=== PATIENT | female | born 1985 | race Caucasian/White ===

== ENCOUNTER 2016-04-07 08:22 | Inpatient (IN) | payer MEDICAID ==
[2016-03-31] MEDS: PANTOPRAZOLE SODIUM 40 MG VIAL IV SCH (23:00)
[2016-04-07 09:32] LABS: HEMATOCRIT 48.1 % (36.0-47.0); HEMOGLOBIN 15.6 g/dL (12.0-15.5); HGB HCT DIFFERENCE -1.3; MEAN CORPUSCULAR HEMOGLOBIN 27.6 pg (27.0-33.4); MEAN CORPUSCULAR HGB CONC 32.3 g/dL (32.0-36.0); MEAN CORPUSCULAR VOLUME 85 fl (80-97); RED BLOOD COUNT 5.64 10^6/uL (3.72-5.28); RED CELL DISTRIBUTION WIDTH 14.9 % (11.5-14.0)
[2016-04-07 09:50] LABS: ALANINE AMINOTRANSFERASE 45 U/L (9-52); ALBUMIN 5.4 g/dL (3.5-5.0); ALKALINE PHOSPHATASE 98 U/L (38-126); ASPARTATE AMINO TRANSFERASE 27 U/L (14-36); BLOOD UREA NITROGEN 22 mg/dL (7-20); CALCIUM 10.8 mg/dL (8.4-10.2); TOTAL PROTEIN 9.2 g/dL (6.3-8.2)
[2016-04-07 09:56] LABS: BAND NEUTROPHILS % (MANUAL) 1 % (3-5); BASOPHILS % (MANUAL) 0 % (0-2); EOSINOPHILS % (MANUAL) 0 % (0-6); LYMPHOCYTES % (MANUAL) 8 % (13-45); TOTAL CELLS COUNTED 100
[2016-04-07 09:57] LABS: ANISOCYTOSIS SLIGHT; CHLORIDE 100 mmol/L (98-107); POTASSIUM 5.6 mmol/L (3.6-5.0); SODIUM 137.5 mmol/L (137-145); TOXIC GRANULATION SLIGHT; TOXIC VACUOLATION PRESENT
[2016-04-07 09:58] LABS: ANION GAP 28 (5-19)
[2016-04-07 10:00] LABS: CARBON DIOXIDE 10 mmol/L (22-30); GLUCOSE 483 mg/dL (75-110)
[2016-04-07 10:04] LABS: APPEARANCE,URINE CLEAR; BILIRUBIN,URINE NEGATIVE (NEGATIVE); GLUCOSE, URINE >=500 mg/dL (NEGATIVE); KETONES,URINE 80 mg/dL (NEGATIVE); LEUKOCYTE ESTERASE,URINE NEGATIVE (NEGATIVE); NITRITE,URINE NEGATIVE (NEGATIVE); PROTEIN,URINE 30 mg/dL (NEGATIVE); URINE SPECIFIC GRAVITY 1.028; UROBILINOGEN,URINE NEGATIVE mg/dL (<2.0)
[2016-04-07] MEDS ORDERED: INSULIN REG, HUMAN 100 UNIT/ML 3 ML VIAL (PYX) SUBCUT ONE (10:07)
--- NOTE | 2016-04-07 10:13 | ER Document Report ---
ED General - General Chief Complaint: Vomiting Stated Complaint: VOMITING Mode of Arrival: Ambulatory Information source: Patient Notes: 30 yr old female hx of type 1 diabetes on lantus and novolog presents with complaints of nausea vomiting. pt was seen by pcp given a shot of medication 2 days ago starting with letter D for her sinusitis. pt notes since then she has not felt well last dka was 2014 TRAVEL OUTSIDE OF THE [place] IN LAST 30 DAYS: No - HPI Onset: Yesterday Onset/Duration: Sudden Quality of pain: Achy Severity: Severe Pain Level: 3 Associated symptoms: Body/muscle aches, Nausea, Vomiting, Weakness Exacerbated by: Denies Relieved by: Denies Similar symptoms previously: Yes Recently seen / treated by doctor: Yes - Related Data Allergies/Adverse Reactions: Penicillins Allergy (Verified 04/07/16 08:26) Past Medical History - Social History Smoking Status: Current Every Day Smoker Cigarette use (# per day): Yes Chew tobacco use (# tins/day): No Smoking Education Provided: No Frequency of alcohol use: None Drug Abuse: None Family History: Reviewed & Not Pertinent Patient has suicidal ideation: No Patient has homicidal ideation: No - Past Medical History Cardiac Medical History: Reports: Hx Hypercholesterolemia Pulmonary Medical History: Denies: Hx Tuberculosis Endocrine Medical History: Reports: Hx Diabetes Mellitus Type 1 Renal/ Medical History: Denies: Hx Peritoneal Dialysis Psychiatric Medical History: Reports: Hx Depression Past Surgical History: Reports: Hx Tubal Ligation - 2005. Denies: Hx Pacemaker - Immunizations Hx Diphtheria, Pertussis, Tetanus Vaccination: No Review of Systems - Review of Systems Notes: PHYSICAL EXAMINATION: GENERAL: Ill-appearing female moderate acute distress HEAD: Atraumatic, normocephalic. EYES: Pupils equal round and reactive to light, extraocular movements intact, conjunctiva are normal. ENT: Nares patent, oropharynx clear without exudates. Moist mucous membranes. NECK: Normal range of motion, supple without lymphadenopathy LUNGS: Breath sounds clear to auscultation bilaterally and equal. No wheezes rales or rhonchi. HEART: Tachycardic ABDOMEN: Soft, nontender, nondistended abdomen. No guarding, no rebound. No masses appreciated. Patient is actively vomiting Female : deferred Musculoskeletal: Normal range of motion, no pitting or edema. No cyanosis. NEUROLOGICAL: Cranial nerves grossly intact. Normal speech, normal gait. Normal sensory, motor exams PSYCH: Normal mood, normal affect. SKIN: Warm, Dry, normal turgor, no rashes or lesions noted. Physical Exam - Vital signs Vitals: Temp Pulse Resp BP Pulse Ox 97.3 F 106 H 18 144/84 H 99 04/07/16 08:30 04/07/16 08:30 04/07/16 08:30 04/07/16 08:30 04/07/16 08:30 Course - Re-evaluation Re-evalutation: 04/07/16 10:16 Patient noted to be in DKA at this time, patient does have elevated white count hyperglycemia with associated ketones in the urine and low bicarbonate she'll be started on insulin drip bolus fluids have been ordered pain control and nausea control patient will be admitted to the hospital service - Vital Signs Vital signs: Temp Pulse Resp BP Pulse Ox 97.3 F 106 H 18 144/84 H 99 04/07/16 08:30 04/07/16 08:30 04/07/16 08:30 04/07/16 08:30 04/07/16 08:30 - Laboratory Result Diagrams: 04/07/16 09:18 04/07/16 09:18 Laboratory results interpreted by me: 04/07/16 04/07/16 04/07/16 09:18 09:18 09:24 WBC 22.0 H RBC 5.64 H Hgb 15.6 H Hct 48.1 H RDW 14.9 H Seg Neuts % (Manual) 82 H Band Neutrophils % 1 L Lymphocytes % (Manual) 8 L Abs Neuts (Manual) 18.3 H Abs Monocytes (Manual) 1.5 H Potassium 5.6 H Carbon Dioxide 10 L* Anion Gap 28 H BUN 22 H Glucose 483 H* POC Glucose 434 H* Calcium 10.8 H Total Protein 9.2 H Albumin 5.4 H Urine Protein Urine Glucose (UA) Urine Ketones Urine Blood 04/07/16 09:42 WBC RBC Hgb Hct RDW Seg Neuts % (Manual) Band Neutrophils % Lymphocytes % (Manual) Abs Neuts (Manual) Abs Monocytes (Manual) Potassium Carbon Dioxide Anion Gap BUN Glucose POC Glucose Calcium Total Protein Albumin Urine Protein 30 H Urine Glucose (UA) >=500 H Urine Ketones 80 H Urine Blood SMALL H Critical Care Note - Critical Care Note Total time excluding time spent on procedures (mins): 32 Comments: 32 minutes of critical care time spent in direct contact evaluating and reevaluating the patient, treating symptoms, reviewing labs and studies and speaking with family and consultants excluding any procedures Discharge - Discharge Clinical Impression: DKA (diabetic ketoacidoses) Qualifiers: Diabetes mellitus type: type 1 Diabetes mellitus complication detail: without coma Qualified Code(s): E10.10 - Type 1 diabetes mellitus with ketoacidosis without coma Nausea & vomiting Qualifiers: Vomiting type: unspecified Vomiting Intractability: non-intractable Qualified Code(s): R11.2 - Nausea with vomiting, unspecified Leukocytosis Qualifiers: Leukocytosis type: unspecified Qualified Code(s): D72.829 - Elevated white blood cell count, unspecified Condition: Serious Disposition: ADMITTED INPATIENT Admitting Provider: Hospitalist Unit Admitted: [facility]
[2016-04-07] MEDS ORDERED: ONDANSETRON HCL INJ/PF 4 MG/2 ML SDV IV ONE (10:17)
[2016-04-07] MEDS ORDERED: HYDROMORPHONE HCL INJ/PF 2 MG/ML AMPULE IV ONE (10:17)
[2016-04-07] MEDS: NORMAL SALINE 1000 ML 1,000 ML IV PRN ×4 (10:26→12:22)
[2016-04-07 10:31] LABS: VENOUS BLOOD HCO3 10.5 mmol/L (20-32); VENOUS BLOOD PCO2 33.6 mmHg (35-63)
[2016-04-07 10:34] LABS: VENOUS BLOOD PH 7.11 (7.30-7.42)
[2016-04-07] MEDS ORDERED: DEXTROSE 40% GEL 15 GM TUBE PO PRN ×2 (10:55)
[2016-04-07] MEDS ORDERED: GLUCAGON,HUMAN RECOMB 1 MG INJ IM PRN (10:55)
[2016-04-07] MEDS ORDERED: DEXTROSE 50%-WATER 25 GM/50 ML DISP.SYRIN IV PRN ×2 (10:55)
[2016-04-07] MEDS ORDERED: NORMAL SALINE 100 ML with INSULIN REGULAR, HUMAN 100 UNIT IV PRN ×2 (10:55)
[2016-04-07] MEDS ORDERED: PROMETHAZINE HCL INJ 50 MG/1 ML VIAL IM PRN (10:56)
[2016-04-07] MEDS ORDERED: ONDANSETRON HCL INJ/PF 4 MG/2 ML SDV IV PRN (10:56)
[2016-04-07] MEDS ORDERED: NORMAL SALINE 1000 ML 1,000 ML IV PRN (10:58)
[2016-04-07] MEDS ORDERED: ACETAMINOPHEN 325 MG TABLET PO PRN (10:58)
[2016-04-07] MEDS ORDERED: INSULIN REG, HUMAN 100 UNIT/ML 3 ML VIAL (PYX) ONE (11:11)
[2016-04-07] MEDS ORDERED: ENOXAPARIN SODIUM INJ 40 MG/0.4 ML DISP.SYRIN SUBCUT ONE (12:30)
[2016-04-07] MEDS ORDERED: NICOTINE 21 MG/24 HR PATCH.TD24 TD ONE (12:30)
[2016-04-07 14:27] LABS: CREATINE KINASE MB 0.71 ng/mL (<4.55)
[2016-04-07 14:34] LABS: TROPONIN I < 0.012 ng/mL
[2016-04-07 14:35] LABS: ANION GAP 22 (5-19); BLOOD UREA NITROGEN 17 mg/dL (7-20); CALCIUM 8.7 mg/dL (8.4-10.2); CHLORIDE 114 mmol/L (98-107); CREATININE RESULT 0.55 mg/dL (0.52-1.25); GLUCOSE 257 mg/dL (75-110); POTASSIUM 5.1 mmol/L (3.6-5.0)
[2016-04-07 14:37] LABS: CARBON DIOXIDE 8 mmol/L (22-30)
[2016-04-07] MEDS: POTASSI CL 20 MEQ/D5-1/2NS 1L 1,000 ML IV PRN ×2 (15:38→22:37)
[2016-04-07] MEDS ORDERED: SODIUM BICARBONATE 8.4% INJ 50 MEQ/50 ML DISP.SYRIN IV ONE (16:00)
[2016-04-07] MEDS: OSELTAMIVIR PHOSPHATE 75 MG CAPSULE PO SCH (17:24)
[2016-04-07] MEDS: LACTOBACILLUS ACIDOPHILUS 250 MG TAB PO SCH (17:24)
[2016-04-07 18:03] LABS: ANION GAP 10 (5-19); BLOOD UREA NITROGEN 13 mg/dL (7-20); CALCIUM 8.5 mg/dL (8.4-10.2); CHLORIDE 113 mmol/L (98-107); CREATININE RESULT 0.52 mg/dL (0.52-1.25); GLUCOSE 165 mg/dL (75-110); POTASSIUM 4.4 mmol/L (3.6-5.0); SODIUM 141.8 mmol/L (137-145)
[2016-04-07 18:18] LABS: CARBON DIOXIDE 19 mmol/L (22-30)
[2016-04-07 19:43] LABS: CREATINE KINASE MB 0.86 ng/mL (<4.55)
[2016-04-07 19:46] LABS: TROPONIN I < 0.012 ng/mL
--- NOTE | 2016-04-07 20:26 | PDOC H&P ---
History of Present Illness Admission Date/PCP: 04/07/16 10:37 NASRIN KYLE, LIMNOLOGIST-C History of Present Illness: ROSITA SCOTT is a 30 year old female with type I diabetes mellitus who reports the emergency department with elevated blood sugar and nausea vomiting diarrhea. Patient has been caring for her 2 children both of whom have been diagnosed with influenza A and B who began developing flulike symptoms. She went to see her primary care yesterday and was given a shot and some antibiotics. Patient then reports that she began having increased diarrhea and nausea and vomiting. She does have some sinus congestion still. She denies any fevers or chills, but has been taking antipyretics at that time. Patient had a blood sugar of 440 which wasn't characteristic for her. She presents emergency department overtly in DKA. Just for to hospital service for admission. Past Medical History Past Medical History: Diabetes mellitus type I Pulmonary Medical History: Denies: Tuberculosis Endocrine Medical History: Reports: Diabetes Mellitus Type 1 Psychiatric Medical History: Reports: Depression Past Surgical History Past Surgical History: Reports: Tubal Ligation - 2005 Denies: Pacemaker Social History Smoking Status: Current Every Day Smoker Cigarettes Packs Per Day: 1 Frequency of Alcohol Use: Rare Hx Recreational Drug Use: Yes Drugs: Marijuana Hx Prescription Drug Abuse: No - Advance Directive Resuscitation Status: Full Code Surrogate healthcare decision maker:: Cheli Vee, mother Family History Family History: CAD, DM, Other - Brain aneurysms Parental Family History Reviewed: Yes Children Family History Reviewed: Yes Sibling(s) Family History Reviewed.: Yes Medication/Allergy Home Medications: Insulin Aspart [Novolog Insulin 100 Unit/1 ml 10 ml] 0 unit SUBCUT .SLD SCALE Insulin Glargine,Hum.rec.anlog [Lantus Solostar] 60 unit SQ DAILY 04/07/16 Allergies/Adverse Reactions: Penicillins Allergy (Verified 04/07/16 08:26) Review of Systems Constitutional: PRESENT: chills, fatigue, weakness. ABSENT: fever(s), headache( s), weight gain, weight loss Eyes: ABSENT: visual disturbances Ears: ABSENT: hearing changes Cardiovascular: ABSENT: chest pain, dyspnea on exertion, edema, orthropnea, palpitations Respiratory: ABSENT: cough, hemoptysis Gastrointestinal: PRESENT: abdominal pain, diarrhea, nausea, vomiting. ABSENT: constipation, hematemesis, hematochezia, melena Genitourinary: ABSENT: dysuria, hematuria Musculoskeletal: ABSENT: joint swelling Integumentary: ABSENT: rash, wounds Neurological: ABSENT: abnormal gait, abnormal speech, confusion, dizziness, focal weakness, syncope Psychiatric: ABSENT: anxiety, depression, homidical ideation, suicidal ideation Endocrine: PRESENT: polyuria. ABSENT: cold intolerance, heat intolerance, polydipsia Hematologic/Lymphatic: ABSENT: easy bleeding, easy bruising Physical Exam Vital Signs: Temp Pulse Resp BP Pulse Ox 97.3 F 106 H 18 144/84 H 99 04/07/16 08:30 04/07/16 08:30 04/07/16 08:30 04/07/16 08:30 04/07/16 08:30 General appearance: PRESENT: severe distress - Vomiting, acutely ill-appearing, well-developed, well-nourished Head exam: PRESENT: atraumatic, normocephalic Eye exam: PRESENT: conjunctiva pink, EOMI, PERRLA. ABSENT: scleral icterus Ear exam: PRESENT: normal external ear exam. ABSENT: TM's normal bilaterally - Left ear injected TM, right ear cerumen impacted Mouth exam: PRESENT: dry mucosa, tongue midline Throat exam: PRESENT: post pharyngeal erythema Neck exam: PRESENT: full ROM, lymphadenopathy. ABSENT: carotid bruit, JVD, thyromegaly, tracheal deviation Respiratory exam: PRESENT: clear to auscultation roya, tachypnea, unlabored. ABSENT: decreased breath sounds, rales, retraction, rhonchi, wheezes Cardiovascular exam: PRESENT: RRR, +S1, +S2, tachycardia. ABSENT: diastolic murmur, gallop, rubs, systolic murmur Pulses: PRESENT: normal dorsalis pedis pul Vascular exam: PRESENT: normal capillary refill GI/Abdominal exam: PRESENT: normal bowel sounds, soft. ABSENT: distended, firm , guarding, mass, Senior's sign, organolmegaly, rebound, rigid, tenderness Rectal exam: PRESENT: deferred Extremities exam: PRESENT: full ROM. ABSENT: calf tenderness, clubbing, pedal edema Musculoskeletal exam: PRESENT: ambulatory, full ROM Neurological exam: PRESENT: alert, awake, oriented to person, oriented to place , oriented to time, oriented to situation, CN II-XII grossly intact. ABSENT: motor sensory deficit Psychiatric exam: PRESENT: appropriate affect, normal mood. ABSENT: homicidal ideation, suicidal ideation Skin exam: PRESENT: dry, intact, warm. ABSENT: cyanosis, rash Results Laboratory Results: 04/07/16 04/07/16 04/07/16 09:18 09:18 10:10 WBC 22.0 H Hgb 15.6 H Hct 48.1 H Band Neutrophils % 1 L VBG pH 7.11 L* Sodium 137.5 Potassium 5.6 H Chloride 100 Carbon Dioxide 10 L* Anion Gap 28 H BUN 22 H Creatinine 0.80 Est GFR (Non-Af Amer) > 60 Glucose 483 H* Calcium 10.8 H Influenza A (Rapid) Influenza B (Rapid) 04/07/16 10:20 WBC Hgb Hct Band Neutrophils % VBG pH Sodium Potassium Chloride Carbon Dioxide Anion Gap BUN Creatinine Est GFR (Non-Af Amer) Glucose Calcium Influenza A (Rapid) NEGATIVE Influenza B (Rapid) NEGATIVE Assessment & Plan - Diagnosis (1) DKA, type 1 Qualifiers: Diabetes mellitus complication detail: without coma Qualified Code(s ): E10.10 - Type 1 diabetes mellitus with ketoacidosis without coma Is this a current diagnosis for this admission?: YesPlan: Initiated patient on insulin drip and give total of 5 L of normal saline bolus. Then run patient 200 mL an hour. Every 4 BMPs and every hour Accu-Cheks. (2) Sepsis Qualifiers: Sepsis type: sepsis due to unspecified organism Qualified Code(s): A41.9 - Sepsis, unspecified organism Is this a current diagnosis for this admission?: YesPlan: Patient meets sepsis criteria with her leukocytosis, tachycardia, and tachypnea. Feel that this is likely secondary to undiagnosed influenza. Will send influenza for PCR. Begin patient on Tamiflu. (3) Influenza Is this a current diagnosis for this admission?: YesPlan: Patient meets sepsis criteria with her leukocytosis, tachycardia, and tachypnea. Feel that this is likely secondary to undiagnosed influenza. Will send influenza for PCR. Begin patient on Tamiflu. (4) Tobacco abuse Is this a current diagnosis for this admission?: YesPlan: Nicotine patch. Patient has been counseled on cessation for greater than 2 minutes. - Time Time Spent: 50 to 70 Minutes Medications reviewed and adjusted accordingly: Yes Anticipated discharge: Home Within: within 48 hours - Inpatient Certification Based on my medical assessment, after consideration of the patient's comorbidities, presenting symptoms, or acuity I expect that the services needed warrant INPATIENT care.: Yes I certify that my determination is in accordance with my understanding of Medicare's requirements for reasonable and necessary INPATIENT services [42 CFR 412.3e].: Yes Medical Necessity: Need For IV Fluids Post Hospital Care: D/C Natural Sciences Manager Documentation
[2016-04-07 21:55] LABS: ANION GAP 10 (5-19); BLOOD UREA NITROGEN 11 mg/dL (7-20); CALCIUM 8.8 mg/dL (8.4-10.2); CARBON DIOXIDE 18 mmol/L (22-30); CHLORIDE 113 mmol/L (98-107); CREATININE RESULT 0.48 mg/dL (0.52-1.25); GLUCOSE 124 mg/dL (75-110); POTASSIUM 4.2 mmol/L (3.6-5.0); SODIUM 141.3 mmol/L (137-145)
[2016-04-08 01:15] LABS: ANION GAP 10 (5-19); BLOOD UREA NITROGEN 11 mg/dL (7-20); CALCIUM 8.3 mg/dL (8.4-10.2); CARBON DIOXIDE 15 mmol/L (22-30); CHLORIDE 113 mmol/L (98-107); CREATINE KINASE 91 U/L (30-135); CREATININE RESULT 0.49 mg/dL (0.52-1.25); GLUCOSE 166 mg/dL (75-110); POTASSIUM 4.2 mmol/L (3.6-5.0); SODIUM 138.4 mmol/L (137-145)
[2016-04-08 01:25] LABS: CREATINE KINASE MB 0.63 ng/mL (<4.55)
[2016-04-08 01:32] LABS: TROPONIN I < 0.012 ng/mL
[2016-04-08] MEDS: POTASSI CL 20 MEQ/D5-1/2NS 1L 1,000 ML IV PRN ×2 (03:47→07:18)
[2016-04-08 05:31] LABS: ABSOLUTE LYMPHOCYTES (AUTO) 2.2 10^3/uL (0.5-4.7); ABSOLUTE MONOCYTES (AUTO) 0.7 10^3/uL (0.1-1.4); ABSOLUTE NEUT (AUTO) 7.9 10^3/uL (1.7-8.2); BASOPHILS % (AUTO) 0.3 % (0-2); EOSINOPHILS % (AUTO) 0.4 % (0-6); HEMATOCRIT 34.2 % (36.0-47.0); HGB HCT DIFFERENCE 1.2; LYMPHOCYTES % (AUTO) 20.1 % (13-45); MEAN CORPUSCULAR HEMOGLOBIN 28.1 pg (27.0-33.4); MEAN CORPUSCULAR HGB CONC 34.3 g/dL (32.0-36.0); MEAN CORPUSCULAR VOLUME 82 fl (80-97); MONOCYTES % (AUTO) 6.4 % (3-13); RED BLOOD COUNT 4.18 10^6/uL (3.72-5.28); RED CELL DISTRIBUTION WIDTH 14.8 % (11.5-14.0); SEGMENTED NEUTROPHILS % (AUTO) 72.8 % (42-78); WHITE BLOOD COUNT 10.8 10^3/uL (4.0-10.5)
[2016-04-08 05:36] LABS: HEMOGLOBIN 11.8 g/dL (12.0-15.5)
[2016-04-08 05:49] LABS: ANION GAP 8 (5-19); BLOOD UREA NITROGEN 10 mg/dL (7-20); CALCIUM 8.5 mg/dL (8.4-10.2); CARBON DIOXIDE 17 mmol/L (22-30); CHLORIDE 113 mmol/L (98-107); CREATININE RESULT 0.48 mg/dL (0.52-1.25); GLUCOSE 141 mg/dL (75-110); MAGNESIUM 1.7 mg/dL (1.6-2.3); SODIUM 138.1 mmol/L (137-145)
[2016-04-08] MEDS ORDERED: NORMAL SALINE 1000 ML 1,000 ML IV ONE (07:47)
[2016-04-08] MEDS ORDERED: INSULIN LISPRO 100 UNIT/ML 3 ML VIAL SUBCUT PRN (07:51)
[2016-04-08] MEDS ORDERED: MAGNESIUM SULFATE/D5W 100 ML IV SCH (08:00)
[2016-04-08] MEDS: ENOXAPARIN SODIUM INJ 40 MG/0.4 ML DISP.SYRIN SUBCUT SCH (08:45)
[2016-04-08] MEDS ORDERED: INSULIN GLARGINE,HUM.REC.ANLOG 1,000 UNIT/10 ML UNIT SUBCUT ONE (09:30)
[2016-04-08] MEDS: LACTOBACILLUS ACIDOPHILUS 250 MG TAB PO SCH ×2 (10:02→17:59)
[2016-04-08] MEDS: OSELTAMIVIR PHOSPHATE 75 MG CAPSULE PO SCH ×2 (10:02→18:00)
[2016-04-08] MEDS: NICOTINE 21 MG/24 HR PATCH.TD24 TD SCH (10:03)
[2016-04-08] MEDS: PANTOPRAZOLE SODIUM 40 MG VIAL IV SCH ×2 (10:03→22:30)
[2016-04-08 11:14] LABS: ANION GAP 6 (5-19); BLOOD UREA NITROGEN 7 mg/dL (7-20); CALCIUM 8.6 mg/dL (8.4-10.2); CARBON DIOXIDE 21 mmol/L (22-30); CHLORIDE 114 mmol/L (98-107); CREATININE RESULT 0.47 mg/dL (0.52-1.25); GLUCOSE 95 mg/dL (75-110); POTASSIUM 3.8 mmol/L (3.6-5.0)
[2016-04-08] MEDS: NORMAL SALINE 1000 ML 1,000 ML IV PRN ×2 (12:24→22:30)
[2016-04-08 14:13] LABS: ANION GAP 11 (5-19); BLOOD UREA NITROGEN 6 mg/dL (7-20); CARBON DIOXIDE 17 mmol/L (22-30); CHLORIDE 113 mmol/L (98-107); GLUCOSE 99 mg/dL (75-110); SODIUM 140.6 mmol/L (137-145)
[2016-04-08 17:23] LABS: ANION GAP 10 (5-19); BLOOD UREA NITROGEN 6 mg/dL (7-20); CALCIUM 8.8 mg/dL (8.4-10.2); CARBON DIOXIDE 20 mmol/L (22-30); CHLORIDE 112 mmol/L (98-107); CREATININE RESULT 0.56 mg/dL (0.52-1.25); GLUCOSE 143 mg/dL (75-110); POTASSIUM 4.3 mmol/L (3.6-5.0); SODIUM 141.8 mmol/L (137-145)
[2016-04-08] MEDS ORDERED: INFLUENZA ADLT QUAD (36MOS+) 2016-17 VAC 0.5 ML SYR IM PRN (18:13)
[2016-04-08 22:03] LABS: ANION GAP 8 (5-19); BLOOD UREA NITROGEN 7 mg/dL (7-20); CALCIUM 9.3 mg/dL (8.4-10.2); CARBON DIOXIDE 22 mmol/L (22-30); CHLORIDE 110 mmol/L (98-107); CREATININE RESULT 0.59 mg/dL (0.52-1.25); GLUCOSE 230 mg/dL (75-110); POTASSIUM 4.7 mmol/L (3.6-5.0); SODIUM 139.9 mmol/L (137-145)
[2016-04-08] MEDS ORDERED: NORMAL SALINE 1000 ML 1,000 ML IV PRN (22:53)
--- NOTE | 2016-04-08 22:55 | PDOC PROGRESS REPORT ---
Subjective Progress Note for:: 04/08/16 Subjective:: Patient reports she's feeling significantly better today. She reports she is quite fatigued. Patient denies chest pain, shortness of breath, abdominal pain, nausea, vomiting , fevers, chills, diarrhea, constipation, headache. Physical Exam Vital Signs: Temp Pulse Resp BP Pulse Ox 97.8 F 78 17 122/74 99 04/08/16 19:08 04/08/16 19:08 04/08/16 19:08 04/08/16 19:08 04/08/16 19:08 Intake & Output 04/07/16 04/08/16 04/09/16 06:59 06:59 06:59 Weight 147 kg Exam: General: Awake alert and oriented x4, no acute respiratory distress HEENT: AT/NC, PERRL, EOMI, oropharynx is moist, pink, no scleral icterus, no conjunctival injection Neck: No JVD, trachea midline Chest: Clear to auscultation bilaterally, no wheezes rhonchi or rales CV: Regular rate and rhythm, normal S1 and S2, no murmur, rub, or gallop Abdomen: Soft, nontender to palpation, nondistended, active bowel sounds; no rebound, rigidity, or guarding Extremities: No cyanosis, clubbing or edema Neuro: Cranial nerves II through XII are grossly intact without focal deficits; awake alert and oriented x4 Psych: Normal mood and affect Results Laboratory Results: 04/08/16 05:05 04/08/16 21:40 04/08/16 04/08/16 04/08/16 00:48 05:05 05:05 WBC 10.8 H RBC 4.18 Hgb 11.8 L D Hct 34.2 L MCV 82 MCH 28.1 MCHC 34.3 RDW 14.8 H Plt Count 194 Seg Neutrophils % 72.8 Lymphocytes % 20.1 Monocytes % 6.4 Eosinophils % 0.4 Basophils % 0.3 Absolute Neutrophils 7.9 Absolute Lymphocytes 2.2 Absolute Monocytes 0.7 Absolute Eosinophils 0.0 Absolute Basophils 0.0 Sodium 138.4 138.1 Potassium 4.2 4.0 Chloride 113 H 113 H Carbon Dioxide 15 L 17 L Anion Gap 10 8 BUN 11 10 Creatinine 0.49 L 0.48 L Est GFR ( Amer) > 60 > 60 Est GFR (Non-Af Amer) > 60 > 60 Glucose 166 H 141 H Calcium 8.3 L 8.5 Magnesium 1.7 04/08/16 04/08/16 04/08/16 10:15 13:42 17:00 WBC RBC Hgb Hct MCV MCH MCHC RDW Plt Count Seg Neutrophils % Lymphocytes % Monocytes % Eosinophils % Basophils % Absolute Neutrophils Absolute Lymphocytes Absolute Monocytes Absolute Eosinophils Absolute Basophils Sodium 141.0 140.6 141.8 Potassium 3.8 4.0 4.3 Chloride 114 H 113 H 112 H Carbon Dioxide 21 L 17 L 20 L Anion Gap 6 11 10 BUN 7 6 L 6 L Creatinine 0.47 L 0.50 L 0.56 Est GFR ( Amer) > 60 > 60 > 60 Est GFR (Non-Af Amer) > 60 > 60 > 60 Glucose 95 99 143 H Calcium 8.6 9.0 8.8 Magnesium 04/08/16 04/08/16 20:55 21:40 WBC RBC Hgb Hct MCV MCH MCHC RDW Plt Count Seg Neutrophils % Lymphocytes % Monocytes % Eosinophils % Basophils % Absolute Neutrophils Absolute Lymphocytes Absolute Monocytes Absolute Eosinophils Absolute Basophils Sodium Cancelled 139.9 Potassium Cancelled 4.7 Chloride Cancelled 110 H Carbon Dioxide Cancelled 22 Anion Gap Cancelled 8 BUN Cancelled 7 Creatinine Cancelled 0.59 Est GFR ( Amer) Cancelled > 60 Est GFR (Non-Af Amer) Cancelled > 60 Glucose Cancelled 230 H Calcium Cancelled 9.3 Magnesium 04/07/16 04/07/16 04/07/16 13:10 13:10 18:58 Creatine Kinase 74 102 CK-MB (CK-2) 0.71 Troponin I < 0.012 04/07/16 04/08/16 04/08/16 18:58 00:48 00:48 Creatine Kinase 91 CK-MB (CK-2) 0.86 0.63 Troponin I < 0.012 < 0.012 Assessment & Plan - Diagnosis (1) DKA, type 1 Qualifiers: Diabetes mellitus complication detail: without coma Qualified Code(s ): E10.10 - Type 1 diabetes mellitus with ketoacidosis without coma Is this a current diagnosis for this admission?: YesPlan: Patient found to have a hemoglobin A1c of 11.2. Transition patient from IV insulin to her normal Lantus. Patient with persistent metabolic acidosis likely secondary to dehydration. Continue normal saline fluids. (2) Sepsis Qualifiers: Sepsis type: sepsis due to unspecified organism Qualified Code(s): A41.9 - Sepsis, unspecified organism Is this a current diagnosis for this admission?: YesPlan: Patient meets sepsis criteria with her leukocytosis, tachycardia, and tachypnea. Feel that this is likely secondary to undiagnosed influenza. Pending influenza for PCR. Patient on Tamiflu. (3) Influenza Is this a current diagnosis for this admission?: YesPlan: Patient on Tamiflu. (4) Tobacco abuse Is this a current diagnosis for this admission?: YesPlan: Nicotine patch. Patient has been counseled on cessation for greater than 2 minutes. - Time Time Spent with patient: 25-34 minutes Medications reviewed and adjusted accordingly: Yes Anticipated discharge: Home Within: within 24 hours
[2016-04-09 06:14] LABS: ABSOLUTE EOSINOPHILS # (AUTO) 0.1 10^3/uL (0.0-0.6); ABSOLUTE LYMPHOCYTES (AUTO) 2.5 10^3/uL (0.5-4.7); ABSOLUTE MONOCYTES (AUTO) 0.5 10^3/uL (0.1-1.4); BASOPHILS % (AUTO) 0.3 % (0-2); EOSINOPHILS % (AUTO) 1.3 % (0-6); HEMATOCRIT 32.4 % (36.0-47.0); HEMOGLOBIN 11.2 g/dL (12.0-15.5); HGB HCT DIFFERENCE 1.2; MEAN CORPUSCULAR HEMOGLOBIN 28.1 pg (27.0-33.4); MEAN CORPUSCULAR HGB CONC 34.6 g/dL (32.0-36.0); MEAN CORPUSCULAR VOLUME 81 fl (80-97); MONOCYTES % (AUTO) 8.9 % (3-13); RED CELL DISTRIBUTION WIDTH 14.7 % (11.5-14.0); SEGMENTED NEUTROPHILS % (AUTO) 49.5 % (42-78); WHITE BLOOD COUNT 6.2 10^3/uL (4.0-10.5)
[2016-04-09 06:45] LABS: ANION GAP 10 (5-19); BLOOD UREA NITROGEN 7 mg/dL (7-20); CALCIUM 8.6 mg/dL (8.4-10.2); CARBON DIOXIDE 22 mmol/L (22-30); CHLORIDE 108 mmol/L (98-107); CREATININE RESULT 0.52 mg/dL (0.52-1.25); GLUCOSE 87 mg/dL (75-110); SODIUM 139.9 mmol/L (137-145)
[2016-04-09] MEDS: ENOXAPARIN SODIUM INJ 40 MG/0.4 ML DISP.SYRIN SUBCUT SCH (07:58)
[2016-04-09] MEDS ORDERED: ACETAMINOPHEN 325 MG TABLET PO PRN (08:22)
[2016-04-09] MEDS ORDERED: INSULIN GLARGINE,HUM.REC.ANLOG 1,000 UNIT/10 ML UNIT SUBCUT ONE (09:00)
[2016-04-09] MEDS: NICOTINE 21 MG/24 HR PATCH.TD24 TD SCH (09:02)
[2016-04-09] MEDS: OSELTAMIVIR PHOSPHATE 75 MG CAPSULE PO SCH (09:02)
[2016-04-09] MEDS: PANTOPRAZOLE SODIUM 40 MG VIAL IV SCH (09:02)
[2016-04-09] MEDS: LACTOBACILLUS ACIDOPHILUS 250 MG TAB PO SCH (09:04)
[2016-04-09 11:08] VITALS: BP 121/70
--- NOTE | 2016-04-09 11:10 | Physician Advisory Note ---
Physician Advisor ProgressNote .: [facility] to [facility], I have reviewed the medical record for this patient. Physician Advisor Statement: Possible documentation opportunities if attending agrees: 1. "obesity with BMI 51.3" As always, if concerned about any unstable VS or abnormal labs, please comment on them & note what doing about them, & please document each day the potential clinical problems you are concerned could occur if pt not kept in hospital for tx at this time. Thanks for your help with documentation accuracy/specificity improvement! Priscilla Graves MD [facility] Physician Advisor, Fellow of Hospital Medicine
--- NOTE | 2016-04-09 19:13 | PDOC DISCHARGE SUMMARY ---
General - Admit/Disc Date/PCP Admission Date/Primary Care Provider: 04/07/16 10:58 TYRONE SCHULTZ Discharge Date: 04/09/16 - Discharge Diagnosis (1) DKA, type 1 Is this a current diagnosis for this admission?: Yes (2) Sepsis Is this a current diagnosis for this admission?: Yes (3) Influenza Is this a current diagnosis for this admission?: Yes (4) Tobacco abuse Is this a current diagnosis for this admission?: Yes - Additional Information Resuscitation Status: Full Code Discharge Diet: Diabetic Discharge Activity: Activity As Tolerated, Balance Activity w/Rest, Slowly Increase Activity Home Medications: Insulin Aspart [Novolog Insulin (Aspart) 100 unit/mL] 0 unit SUBCUT .SLD SCALE 04/07/16 Insulin Glargine,Hum.rec.anlog [Lantus Solostar] 60 unit SQ DAILY 04/07/16 Oseltamivir Phosphate [Tamiflu 75 mg Capsule] 75 mg PO BID #6 capsule 04/09/16 Additional Information: Please note that patient's weight is incorrectly entered and patient is to be listed as 148 pounds 9 kg. Patient has a normal BMI. History of Present Illness History of Present Illness: ROSITA SCOTT is a 30 year old female with type I diabetes mellitus who reports the emergency department with elevated blood sugar and nausea vomiting diarrhea. Patient has been caring for her 2 children both of whom have been diagnosed with influenza A and B who began developing flulike symptoms. She went to see her primary care yesterday and was given a shot and some antibiotics. Patient then reports that she began having increased diarrhea and nausea and vomiting. She does have some sinus congestion still. She denies any fevers or chills, but has been taking antipyretics at that time. Patient had a blood sugar of 440 which wasn't characteristic for her. She presents emergency department overtly in DKA. Just for to hospital service for admission. Hospital Course Hospital Course: Patient was placed on insulin drip per protocol and quickly resolved. Patient was started on Tamiflu as she had been exposed to confirm fluid in both of her children. Patient had resolution of her symptomatology. Patient was retracted transition back to her home Lantus. Patient was also found to have a hemoglobin A1c of 11.2. The long-term side effects of diabetes mellitus were discussed with patient including heart disease, vision loss, chronic kidney disease and hemodialysis, and loss of limb. Patient was encouraged to follow- up with endocrinology as an outpatient. On day of discharge she was improved and stable for discharge. Physical Exam Vital Signs: Temp Pulse Resp BP Pulse Ox 97.7 F 74 16 121/70 100 04/09/16 11:01 04/09/16 11:01 04/09/16 11:01 04/09/16 11:01 04/09/16 11:01 Intake & Output 04/08/16 04/09/16 04/10/16 06:59 06:59 06:59 Intake Total 2850 351 Balance 2850 351 Weight 148.6 kg Exam: General: Awake alert and oriented x3, no acute respiratory distress HEENT: AT/NC, PERRL, EOMI, oropharynx is moist, pink, no scleral icterus, no conjunctival injection Neck: No JVD, trachea midline Chest: Clear to auscultation bilaterally, no wheezes rhonchi or rales CV: Regular rate and rhythm, normal S1 and S2, no murmur, rub, or gallop Abdomen: Soft, nontender to palpation, nondistended, active bowel sounds; no rebound, rigidity, or guarding Extremities: No cyanosis, clubbing or edema Neuro: Cranial nerves II through XII are grossly intact without focal deficits; awake alert and oriented x3 Psych: Normal mood and affect Results Laboratory Results: 04/09/16 05:04 04/09/16 05:04 04/08/16 04/08/16 04/09/16 20:55 21:40 05:04 WBC 6.2 RBC 4.00 Hgb 11.2 L Hct 32.4 L MCV 81 MCH 28.1 MCHC 34.6 RDW 14.7 H Plt Count 189 Seg Neutrophils % 49.5 Lymphocytes % 40.0 Monocytes % 8.9 Eosinophils % 1.3 Basophils % 0.3 Absolute Neutrophils 3.0 Absolute Lymphocytes 2.5 Absolute Monocytes 0.5 Absolute Eosinophils 0.1 Absolute Basophils 0.0 Sodium Cancelled 139.9 Potassium Cancelled 4.7 Chloride Cancelled 110 H Carbon Dioxide Cancelled 22 Anion Gap Cancelled 8 BUN Cancelled 7 Creatinine Cancelled 0.59 Est GFR ( Amer) Cancelled > 60 Est GFR (Non-Af Amer) Cancelled > 60 Glucose Cancelled 230 H Calcium Cancelled 9.3 04/09/16 05:04 WBC RBC Hgb Hct MCV MCH MCHC RDW Plt Count Seg Neutrophils % Lymphocytes % Monocytes % Eosinophils % Basophils % Absolute Neutrophils Absolute Lymphocytes Absolute Monocytes Absolute Eosinophils Absolute Basophils Sodium 139.9 Potassium 4.0 Chloride 108 H Carbon Dioxide 22 Anion Gap 10 BUN 7 Creatinine 0.52 Est GFR ( Amer) > 60 Est GFR (Non-Af Amer) > 60 Glucose 87 Calcium 8.6 04/07/16 04/07/16 04/07/16 13:10 13:10 18:58 Creatine Kinase 74 102 CK-MB (CK-2) 0.71 Troponin I < 0.012 04/07/16 04/08/16 04/08/16 18:58 00:48 00:48 Creatine Kinase 91 CK-MB (CK-2) 0.86 0.63 Troponin I < 0.012 < 0.012 Qualifiers PATEINT BEING DISCHARGED WITH ANY OF THE FOLLOWING DIAGNOSIS?: No Plan Time Spent: Less than 30 Minutes
== END 2016-04-09 12:15 | disposition home or self-care (01) | DRG 637 ==
LOC: ER 08:22 → EH 10:37 → UNDOADMIN 10:37 → EH 10:58 → 4N 04-08 16:32
PROVIDERS: ADMIT Family Medicine; ATTEND Family Medicine
DX: E10.10 Type 1 diabetes mellitus with ketoacidosis without coma (principal); A41.9 Sepsis, unspecified organism; J11.1 Influenza due to unidentified influenza virus with other respiratory manifestations; F17.210 Nicotine dependence, cigarettes, uncomplicated; E78.00 Pure hypercholesterolemia, unspecified; E86.0 Dehydration; Z82.49 Family history of ischemic heart disease and other diseases of the circulatory system; Z83.3 Family history of diabetes mellitus; Z98.51 Tubal ligation status; Z79.4 Long term (current) use of insulin; Z88.0 Allergy status to penicillin
CPT/HCPCS: 36415; 80048; 80053; 81001; 81025; 82550; 82553; 82803; 82962; 83036; 83735; 84484; 85025; 87040; 87086; 87798; 87804; 96361; 96374; 96375; 99291; J1170; J1650; J1815; J2405; J2550; J3475; J3480; J3490; J7030; S0164

== ENCOUNTER 2016-11-15 08:39 | Emergency (ER) | payer SELFPAY ==
[2016-11-15] MEDS: NORMAL SALINE 1000 ML 1,000 ML IV PRN ×2 (09:04→09:05)
[2016-11-15 09:20] LABS: VENOUS BLOOD HCO3 18.3 mmol/L (20-32); VENOUS BLOOD PCO2 36.6 mmHg (35-63); VENOUS BLOOD PH 7.32 (7.30-7.42)
[2016-11-15 09:22] LABS: ABSOLUTE EOSINOPHILS # (AUTO) 0.1 10^3/uL (0.0-0.6); ABSOLUTE MONOCYTES (AUTO) 0.6 10^3/uL (0.1-1.4); ABSOLUTE NEUT (AUTO) 6.9 10^3/uL (1.7-8.2); BASOPHILS % (AUTO) 0.5 % (0-2); EOSINOPHILS % (AUTO) 0.9 % (0-6); HEMATOCRIT 43.1 % (36.0-47.0); HEMOGLOBIN 14.8 g/dL (12.0-15.5); HGB HCT DIFFERENCE 1.3; LYMPHOCYTES % (AUTO) 20.8 % (13-45); MEAN CORPUSCULAR HEMOGLOBIN 28.9 pg (27.0-33.4); MEAN CORPUSCULAR HGB CONC 34.4 g/dL (32.0-36.0); MEAN CORPUSCULAR VOLUME 84 fl (80-97); MONOCYTES % (AUTO) 6.2 % (3-13); RED BLOOD COUNT 5.14 10^6/uL (3.72-5.28); RED CELL DISTRIBUTION WIDTH 14.5 % (11.5-14.0); SEGMENTED NEUTROPHILS % (AUTO) 71.6 % (42-78); WHITE BLOOD COUNT 9.6 10^3/uL (4.0-10.5)
[2016-11-15 09:37] LABS: ALANINE AMINOTRANSFERASE 36 U/L (9-52); ALKALINE PHOSPHATASE 65 U/L (38-126); ANION GAP 14 (5-19); ASPARTATE AMINO TRANSFERASE 26 U/L (14-36); BILIRUBIN,DIRECT 0.4 mg/dL (0.0-0.4); BILIRUBIN,TOTAL 0.8 mg/dL (0.2-1.3); BLOOD UREA NITROGEN 10 mg/dL (7-20); CALCIUM 9.1 mg/dL (8.4-10.2); CARBON DIOXIDE 17 mmol/L (22-30); CHLORIDE 109 mmol/L (98-107); CREATININE RESULT 0.46 mg/dL (0.52-1.25); GLUCOSE 339 mg/dL (75-110); LIPASE 76.7 U/L (23-300); POTASSIUM 4.7 mmol/L (3.6-5.0); SODIUM 139.7 mmol/L (137-145); TOTAL PROTEIN 6.7 g/dL (6.3-8.2)
[2016-11-15] MEDS ORDERED: NORMAL SALINE 1000 ML 1,000 ML IV ONE (10:41)
--- NOTE | 2016-11-15 10:48 | ER Document Report ---
ED General - General Chief Complaint: High Blood Sugar Stated Complaint: WEAKNESS Time Seen by Provider: 11/15/16 08:50 TRAVEL OUTSIDE OF THE [place] IN LAST 30 DAYS: No - HPI Patient complains to provider of: Elevated blood sugars Notes: Patient coming in stating she has been out of her insulin for over 1 week. Patient states she is on Lantus currently. States she does not have a primary care physician. States her blood sugars have been elevated she has been feeling weak patient states a history of DKA in the past. Upon my evaluation patient looks to be in no obvious distress. - Related Data Allergies/Adverse Reactions: Penicillins Allergy (Verified 11/21/16 23:46) Past Medical History - Social History Smoking Status: Current Every Day Smoker Chew tobacco use (# tins/day): No Frequency of alcohol use: Occasional Drug Abuse: None Family History: CAD, DM, Other - Brain aneurysms - Past Medical History Cardiac Medical History: Reports: Hx Hypercholesterolemia Pulmonary Medical History: Denies: Hx Tuberculosis Endocrine Medical History: Reports: Hx Diabetes Mellitus Type 1 Renal/ Medical History: Denies: Hx Peritoneal Dialysis Psychiatric Medical History: Reports: Hx Depression Past Surgical History: Reports: Hx Tubal Ligation. Denies: Hx Pacemaker - Immunizations Hx Diphtheria, Pertussis, Tetanus Vaccination: No Review of Systems - Review of Systems Constitutional: Weakness, Other - Elevated blood sugars EENT: No symptoms reported Cardiovascular: No symptoms reported Respiratory: No symptoms reported Gastrointestinal: No symptoms reported Genitourinary: No symptoms reported Female Genitourinary: No symptoms reported Musculoskeletal: No symptoms reported Skin: No symptoms reported Hematologic/Lymphatic: No symptoms reported Neurological/Psychological: No symptoms reported Physical Exam - Vital signs Vitals: Temp Pulse Resp BP Pulse Ox 97.9 F 116 H 18 146/79 H 100 11/15/16 08:44 11/15/16 08:44 11/15/16 08:44 11/15/16 08:44 11/15/16 08:44 Interpretation: Normal - General General appearance: Appears well, Alert - HEENT Head: Normocephalic, Atraumatic Eyes: Normal Pupils: PERRL - Respiratory Respiratory status: No respiratory distress Chest status: Nontender Breath sounds: Normal Chest palpation: Normal - Cardiovascular Rhythm: Regular Heart sounds: Normal auscultation Murmur: No - Abdominal Inspection: Normal Distension: No distension Bowel sounds: Normal Tenderness: Nontender Organomegaly: No organomegaly - Back Back: Normal, Nontender - Extremities General upper extremity: Normal inspection, Nontender, Normal color, Normal ROM , Normal temperature General lower extremity: Normal inspection, Nontender, Normal color, Normal ROM , Normal temperature, Normal weight bearing. No: Inna's sign - Neurological Neuro grossly intact: Yes Cognition: Normal Orientation: AAOx4 Streeter Coma Scale Eye Opening: Spontaneous Streeter Coma Scale Verbal: Oriented Streeter Coma Scale Motor: Obeys Commands Streeter Coma Scale Total: 15 Speech: Normal Motor strength normal: LUE, RUE, LLE, RLE Sensory: Normal - Psychological Associated symptoms: Normal affect, Normal mood - Skin Skin Temperature: Warm Skin Moisture: Dry Skin Color: Normal Course - Re-evaluation Re-evalutation: 11/24/16 13:37 Hemoglobin A1c has improved. Recommendations from the hospitalist to switch the patient to more affordable 7030 this was performed patient stated an understanding of dosing also talked to the ER social studies teacher to try to have the patient follow-up in local clinics. - Vital Signs Vital signs: Temp Pulse Resp BP Pulse Ox 98.0 F 116 H 16 115/69 98 11/15/16 11:01 11/15/16 08:44 11/15/16 11:01 11/15/16 11:01 11/15/16 11:01 - Laboratory Result Diagrams: 11/15/16 08:56 11/15/16 08:56 Laboratory results interpreted by me: 11/15/16 11/15/16 11/15/16 08:47 08:56 08:56 RDW 14.5 H VBG HCO3 Chloride 109 H Carbon Dioxide 17 L Creatinine 0.46 L Glucose 339 H POC Glucose 339 H Hemoglobin A1c % Urine Glucose (UA) Urine Ketones 11/15/16 11/15/16 11/15/16 08:56 08:56 09:10 RDW VBG HCO3 18.3 L Chloride Carbon Dioxide Creatinine Glucose POC Glucose Hemoglobin A1c % 10.1 H Urine Glucose (UA) >=500 H Urine Ketones 80 H Discharge - Discharge Clinical Impression: Tobacco abuse, Hyperglycemia Condition: Good Disposition: HOME, SELF-CARE Instructions: Diabetes ([facility]) Additional Instructions: I will have her social studies teacher contact you see if we can provide you with an appointment at the [facility]. I will suggest changing her insulin from Lantus to 70/30. You will take this insulin 20 units twice a day please continue to record her blood sugars Forms: Return to Work
[2016-11-15 10:58] LABS: APPEARANCE,URINE CLEAR; BILIRUBIN,URINE NEGATIVE (NEGATIVE); GLUCOSE, URINE >=500 mg/dL (NEGATIVE); KETONES,URINE 80 mg/dL (NEGATIVE); LEUKOCYTE ESTERASE,URINE NEGATIVE (NEGATIVE); NITRITE,URINE NEGATIVE (NEGATIVE); PROTEIN,URINE NEGATIVE (NEGATIVE); URINE SPECIFIC GRAVITY 1.035; UROBILINOGEN,URINE NEGATIVE mg/dL (<2.0)
[2016-11-15 11:06] VITALS: BP 115/69
== END 2016-11-15 11:13 | disposition home or self-care (01) ==
LOC: ER 08:39
DX: E10.65 Type 1 diabetes mellitus with hyperglycemia (principal); F17.200 Nicotine dependence, unspecified, uncomplicated; R53.1 Weakness; E78.00 Pure hypercholesterolemia, unspecified; Z98.51 Tubal ligation status
CPT/HCPCS: 99283; 96360; 36415; 82962; 84702; 83690; 85025; 80053; 81001; 83036; 82803; J7030

== ENCOUNTER 2016-11-21 22:11 | Emergency (ER) | payer SELFPAY ==
[2016-11-21] MEDS ORDERED: NORMAL SALINE 1000 ML 1,000 ML IV ONE (22:29)
[2016-11-21 22:57] LABS: VENOUS BLOOD BASE EXCESS -11.9 mmol/L; VENOUS BLOOD HCO3 14.1 mmol/L (20-32); VENOUS BLOOD PCO2 32.9 mmHg (35-63); VENOUS BLOOD PH 7.25 (7.30-7.42)
[2016-11-21 22:58] LABS: ABSOLUTE BASOPHILS # (AUTO) 0.1 10^3/uL (0.0-0.2); ABSOLUTE EOSINOPHILS # (AUTO) 0.1 10^3/uL (0.0-0.6); ABSOLUTE LYMPHOCYTES (AUTO) 1.9 10^3/uL (0.5-4.7); ABSOLUTE MONOCYTES (AUTO) 0.6 10^3/uL (0.1-1.4); ABSOLUTE NEUT (AUTO) 8.3 10^3/uL (1.7-8.2); BASOPHILS % (AUTO) 0.5 % (0-2); EOSINOPHILS % (AUTO) 0.9 % (0-6); HEMATOCRIT 42.8 % (36.0-47.0); HEMOGLOBIN 14.5 g/dL (12.0-15.5); HGB HCT DIFFERENCE 0.7; LYMPHOCYTES % (AUTO) 17.1 % (13-45); MEAN CORPUSCULAR HEMOGLOBIN 29.7 pg (27.0-33.4); MEAN CORPUSCULAR VOLUME 87 fl (80-97); MONOCYTES % (AUTO) 5.5 % (3-13); WHITE BLOOD COUNT 10.9 10^3/uL (4.0-10.5)
--- NOTE | 2016-11-21 23:06 | ER Document Report ---
ED Blood Sugar Problem - General Chief Complaint: High Blood Sugar Stated Complaint: BLOOD SUGAR PROBLEMS Time Seen by Provider: 11/21/16 22:49 Notes: Patient is a 31 year old female who presents to the ED stating her blood sugar at home was elevated. States she was seen here on 11/15 and was not in DKA, she was discharged home with a new prescription for novolog 70/30 but she hasnt filled it. she states she has been feeling tired otherwise denies n,v, abdominal pain, urinary frequency. Tolerating PO. pcp used to be karo leonard but she lost her medicaid so she cannot afford to follow up with her TRAVEL OUTSIDE OF THE [place] IN LAST 30 DAYS: No - Related Data Allergies/Adverse Reactions: Penicillins Allergy (Verified 11/21/16 23:46) Past Medical History - Social History Smoking Status: Current Every Day Smoker Family History: CAD, DM, Other - Brain aneurysms Patient has suicidal ideation: No Patient has homicidal ideation: No - Past Medical History Cardiac Medical History: Reports: Hx Hypercholesterolemia Pulmonary Medical History: Denies: Hx Tuberculosis Endocrine Medical History: Reports: Hx Diabetes Mellitus Type 1 Renal/ Medical History: Denies: Hx Peritoneal Dialysis Psychiatric Medical History: Reports: Hx Depression Past Surgical History: Reports: Hx Tubal Ligation. Denies: Hx Pacemaker - Immunizations Hx Diphtheria, Pertussis, Tetanus Vaccination: No Review of Systems - Review of Systems Constitutional: See HPI Cardiovascular: No symptoms reported Respiratory: No symptoms reported Gastrointestinal: No symptoms reported -: Yes All other systems reviewed and negative Physical Exam - Vital signs Vitals: Temp Pulse Resp BP Pulse Ox 97.6 F 91 20 125/68 96 11/21/16 22:20 11/21/16 22:20 11/21/16 22:20 11/21/16 22:20 11/21/16 22:20 - Notes Notes: PHYSICAL EXAM GENERAL: Alert, interacts well. HEAD: Normocephalic, atraumatic. EYES: Pupils equal, round, and reactive to light. Extraocular movements intact. ENT: Oral mucosa moist, tongue midline. NECK: Full range of motion. Supple. Trachea midline. LUNGS: Clear to auscultation bilaterally, no wheezes, rales, or rhonchi. No respiratory distress. HEART: Regular rate and rhythm. No murmurs, gallops, or rubs. ABDOMEN: Soft, nondistended, nontender. No guarding, rebound, or rigidity.. Bowel sounds present in all 4 quadrants. EXTREMITIES: Moves all 4 extremities spontaneously. No edema, radial and dorsalis pedis pulses 2/4 bilaterally. No cyanosis. NEUROLOGICAL: Alert and oriented x4. Normal speech. PSYCH: Normal affect, normal mood. SKIN: Warm, dry, normal turgor. No rashes or lesions noted. Course - Re-evaluation Re-evalutation: 11/22/16 01:11 11/22/16 03:04 Presentation of asymptomatic hyperglycemia. There is no evidence of HHS or diabetic ketoacidosis on laboratories or based on clinical history. Patient's vitals are within normal limits. They deny any acute focal complaints. Treatment with insulin and IV fluids given here in the emergency department with appropriate response of the blood sugar. Patient does have primary care follow-up. Patient was instructed to continue taking their metformin and advised they will likely need to increase dietary modification and may also need medication changes. Indications to return to emergency department as well as the importance of close outpatient follow-up were discussed at length. Patient verbalized understanding of the need for close follow-up and indications to return to the ED. - Vital Signs Vital signs: Temp Pulse Resp BP Pulse Ox 97.9 F 91 17 138/77 H 100 11/22/16 03:10 11/21/16 22:20 11/22/16 03:01 11/22/16 03:01 11/22/16 03:01 - Laboratory Result Diagrams: 11/21/16 22:20 11/21/16 23:39 Laboratory results interpreted by me: 11/21/16 11/21/16 11/21/16 22:20 22:20 22:20 WBC 10.9 H RDW 15.0 H Absolute Neutrophils 8.3 H VBG pH 7.25 L VBG pCO2 32.9 L VBG HCO3 14.1 L Potassium Carbon Dioxide Anion Gap Glucose POC Glucose Direct Bilirubin Urine Glucose (UA) >=500 H Urine Ketones 80 H Urine Blood SMALL H 11/21/16 11/22/16 23:39 02:49 WBC RDW Absolute Neutrophils VBG pH VBG pCO2 VBG HCO3 Potassium 5.7 H Carbon Dioxide 11 L Anion Gap 24 H Glucose 597 H* POC Glucose 356 H Direct Bilirubin 0.6 H Urine Glucose (UA) Urine Ketones Urine Blood Discharge - Discharge Clinical Impression: Hyperglycemia Condition: Good Disposition: HOME, SELF-CARE Additional Instructions: You need to followup urgently with your primary care doctor as your blood sugars were dangerously high today. You did not have any evidence of a dangerous condition associated with these blood sugars at this time. However, it is very important that you get your blood sugars under control. Please take all of your medications exactly as directed. You should avoid foods that are high in carbohydrates and sugary foods. Losing weight will also help to better control your blood sugars. Please return to emergency department immediately if you develop weakness, persistent vomiting, confusion, or any other symptoms that are concerning to you. Forms: Return to Work Referrals: [facility] [Provider Group] - Follow up in 3-5 days
[2016-11-21 23:11] LABS: APPEARANCE,URINE CLEAR; BILIRUBIN,URINE NEGATIVE (NEGATIVE); GLUCOSE, URINE >=500 mg/dL (NEGATIVE); KETONES,URINE 80 mg/dL (NEGATIVE); LEUKOCYTE ESTERASE,URINE NEGATIVE (NEGATIVE); NITRITE,URINE NEGATIVE (NEGATIVE); PROTEIN,URINE NEGATIVE (NEGATIVE); URINE SPECIFIC GRAVITY 1.023; UROBILINOGEN,URINE NEGATIVE mg/dL (<2.0)
[2016-11-21] MEDS ORDERED: ONDANSETRON HCL INJ/PF 4 MG/2 ML SDV IV ONE (23:31)
[2016-11-22] MEDS ORDERED: NORMAL SALINE 1000 ML 1,000 ML IV ONE (00:08)
[2016-11-22 00:26] LABS: ALANINE AMINOTRANSFERASE 43 U/L (9-52); ALBUMIN 4.5 g/dL (3.5-5.0); ALKALINE PHOSPHATASE 96 U/L (38-126); ASPARTATE AMINO TRANSFERASE 18 U/L (14-36); BILIRUBIN,DIRECT 0.6 mg/dL (0.0-0.4); BILIRUBIN,TOTAL 1.2 mg/dL (0.2-1.3); BLOOD UREA NITROGEN 18 mg/dL (7-20); CALCIUM 9.8 mg/dL (8.4-10.2); CARBON DIOXIDE 11 mmol/L (22-30); CHLORIDE 103 mmol/L (98-107); CREATININE RESULT 0.68 mg/dL (0.52-1.25); TOTAL PROTEIN 7.5 g/dL (6.3-8.2)
[2016-11-22 00:43] LABS: POTASSIUM 5.7 mmol/L (3.6-5.0); SODIUM 138.1 mmol/L (137-145)
[2016-11-22 00:47] LABS: ANION GAP 24 (5-19)
[2016-11-22 00:49] LABS: GLUCOSE 597 mg/dL (75-110)
[2016-11-22] MEDS ORDERED: INSULIN REG, HUMAN 100 UNIT/ML 3 ML VIAL (PYX) SUBCUT ONE (01:17)
[2016-11-22 03:07] VITALS: BP 138/77
== END 2016-11-22 03:15 | disposition home or self-care (01) ==
LOC: ER 22:11
DX: E10.65 Type 1 diabetes mellitus with hyperglycemia (principal); Z79.84 Long term (current) use of oral hypoglycemic drugs; F17.200 Nicotine dependence, unspecified, uncomplicated; Z88.0 Allergy status to penicillin
CPT/HCPCS: 99285; 96361; 96374; 36415; 82962; 85025; 81025; 80053; 81001; 82803; J1815; J2405; J7030 ×2

== ENCOUNTER 2016-11-22 13:38 | Inpatient (IN) | payer SELFPAY ==
[2016-11-22] MEDS ORDERED: NORMAL SALINE 1000 ML 1,000 ML IV PRN ×2 (14:01→15:51)
[2016-11-22] MEDS ORDERED: ONDANSETRON HCL INJ/PF 4 MG/2 ML SDV IV ONE (14:01)
--- NOTE | 2016-11-22 14:07 | ER Document Report ---
ED Medical Screen (RME) - General Chief Complaint: Vomiting Stated Complaint: VOMITING Time Seen by Provider: 11/22/16 13:59 Mode of Arrival: Ambulatory Information source: Patient TRAVEL OUTSIDE OF THE [place] IN LAST 30 DAYS: No - HPI Patient complains to provider of: Nausea and vomiting, high blood sugar Notes: 11/22/16 14:06 Patient is a 31-year-old female who presents to the emergency room today complaining of elevated blood sugar with nausea and vomiting, was seen in the ER yesterday and discharged home, states she has been unable to tolerate anything by mouth since then - Related Data Allergies/Adverse Reactions: Penicillins Allergy (Verified 11/21/16 23:46) Past Medical History - Past Medical History Cardiac Medical History: Reports: Hx Hypercholesterolemia Pulmonary Medical History: Denies: Hx Tuberculosis Endocrine Medical History: Reports: Hx Diabetes Mellitus Type 1 Renal/ Medical History: Denies: Hx Peritoneal Dialysis Psychiatric Medical History: Reports: Hx Depression Past Surgical History: Reports: Hx Tubal Ligation. Denies: Hx Pacemaker - Immunizations Hx Diphtheria, Pertussis, Tetanus Vaccination: No History of Influenza Vaccine for 11/2016 - 04/2017 Season: No Physical Exam - Vital signs Vitals: Temp Pulse Resp BP Pulse Ox 97.6 F 115 H 20 147/79 H 98 11/22/16 13:56 11/22/16 13:56 11/22/16 13:56 11/22/16 13:56 11/22/16 13:56 Course - Vital Signs Vital signs: Temp Pulse Resp BP Pulse Ox 97.6 F 115 H 20 147/79 H 98 11/22/16 13:56 11/22/16 13:56 11/22/16 13:56 11/22/16 13:56 11/22/16 13:56
[2016-11-22] MEDS ORDERED: NORMAL SALINE 1000 ML 1,000 ML IV ONE (14:14)
[2016-11-22 14:49] LABS: ABSOLUTE BASOPHILS # (AUTO) 0.1 10^3/uL (0.0-0.2); ABSOLUTE EOSINOPHILS # (AUTO) 0.1 10^3/uL (0.0-0.6); ABSOLUTE LYMPHOCYTES (AUTO) 1.7 10^3/uL (0.5-4.7); ABSOLUTE MONOCYTES (AUTO) 0.6 10^3/uL (0.1-1.4); ABSOLUTE NEUT (AUTO) 16.3 10^3/uL (1.7-8.2); BASOPHILS % (AUTO) 0.5 % (0-2); EOSINOPHILS % (AUTO) 0.3 % (0-6); HEMATOCRIT 47.2 % (36.0-47.0); HEMOGLOBIN 15.4 g/dL (12.0-15.5); LYMPHOCYTES % (AUTO) 8.8 % (13-45); MEAN CORPUSCULAR HEMOGLOBIN 28.4 pg (27.0-33.4); MEAN CORPUSCULAR HGB CONC 32.6 g/dL (32.0-36.0); MEAN CORPUSCULAR VOLUME 87 fl (80-97); MONOCYTES % (AUTO) 3.1 % (3-13); RED BLOOD COUNT 5.42 10^6/uL (3.72-5.28); SEGMENTED NEUTROPHILS % (AUTO) 87.3 % (42-78); WHITE BLOOD COUNT 18.7 10^3/uL (4.0-10.5)
--- NOTE | 2016-11-22 14:55 | ER Document Report ---
ED General - General Mode of Arrival: Ambulatory TRAVEL OUTSIDE OF THE [place] IN LAST 30 DAYS: No - HPI Associated symptoms: Other - see HPI <JESUS ALBERTO COATES - Last Filed: 11/22/16 17:18> - HPI Onset/Duration: Gradual Quality of pain: No pain <JAMILAH GEIGER - Last Filed: 11/22/16 22:59> - General Chief Complaint: Vomiting Stated Complaint: VOMITING Time Seen by Provider: 11/22/16 13:59 Notes: Patient is a 31 year old female who presents to the ED with complaints of nausea and vomiting since she woke up this morning. Patient was seen in the ED over night and discharged around [id number]. Patient has a history of insulin depended diabetes, she is suppose to be on Lantus and Novolog sliding scale but she has been out because she has no insurance. She states that she was denied by medicaid and is trying to get into the community clinic but so far has been unable to do so. Patient reports generalized body aches and denies dysuria cough or fever. (JESUS ALBERTO COATES) - Related Data Allergies/Adverse Reactions: Penicillins Allergy (Verified 11/21/16 23:46) Home Medications: Current Home Medications Insulin Aspart [Novolog Flexpen] See Protocol SQ MEALS 11/22/16 [History] Insulin Glargine,Hum.rec.anlog [Lantus Solostar] 60 units SQ DAILY 11/22/16 [ History] Past Medical History - General Information source: Patient - Social History Smoking Status: Current Every Day Smoker Chew tobacco use (# tins/day): No Frequency of alcohol use: None Drug Abuse: None Family History: CAD, DM, Other - Brain aneurysms - Past Medical History Cardiac Medical History: Reports: Hx Hypercholesterolemia Endocrine Medical History: Reports: Hx Diabetes Mellitus Type 1 Psychiatric Medical History: Reports: Hx Depression Past Surgical History: Reports: Hx Tubal Ligation. Denies: Hx Pacemaker - Immunizations Hx Diphtheria, Pertussis, Tetanus Vaccination: No <JESUS ALBERTO COATES - Last Filed: 11/22/16 17:18> - Social History Family History: Reviewed & Not Pertinent <JAMILAH GEIGER - Last Filed: 11/22/16 22:59> Review of Systems - Review of Systems Constitutional: See HPI. denies: Fever EENT: No symptoms reported Cardiovascular: No symptoms reported Respiratory: See HPI. denies: Cough Gastrointestinal: See HPI, Nausea, Vomiting Genitourinary: See HPI. denies: Dysuria Female Genitourinary: No symptoms reported Musculoskeletal: See HPI, Other - generalized body aches Skin: No symptoms reported Hematologic/Lymphatic: No symptoms reported Neurological/Psychological: No symptoms reported <JESUS ALBERTO COATES - Last Filed: 11/22/16 17:18> Physical Exam - Vital signs Interpretation: Tachycardic - General General appearance: Alert In distress: Mild - HEENT Mucous membranes: Dry Pharynx: Normal Neck: Normal - Respiratory Respiratory status: Tachypnea Breath sounds: Normal - Cardiovascular Rhythm: Regular, Tachycardia - Abdominal Inspection: Normal Tenderness: Nontender - Extremities General upper extremity: Normal inspection, Normal ROM, Normal strength General lower extremity: Normal inspection, Normal ROM, Normal strength - Neurological Neuro grossly intact: Yes Cognition: Normal Orientation: AAOx4 - Psychological Associated symptoms: Normal affect, Normal mood - Skin Skin Temperature: Warm Skin Moisture: Dry <JAMILAH GEIGER - Last Filed: 11/22/16 22:59> - Vital signs Vitals: Temp Pulse Resp BP Pulse Ox 97.6 F 115 H 20 147/79 H 98 11/22/16 13:56 11/22/16 13:56 11/22/16 13:56 11/22/16 13:56 11/22/16 13:56 Course - Laboratory Result Diagrams: 11/22/16 14:20 11/22/16 14:20 - Consults Dr. Gonzales Umaña Time consulted: 15:30 <JESUS ALBERTO COATES - Last Filed: 11/22/16 17:18> - Laboratory Result Diagrams: 11/22/16 14:20 11/22/16 20:30 - Diagnostic Test Radiology reviewed: Reports reviewed <JAMILAH GEIGER - Last Filed: 11/22/16 22:59> - Re-evaluation Re-evalutation: 11/22/16 Patient is a 31-year-old female who comes in with vomiting. Patient has a history of diabetes and states that she did not use her insulin because she did not have any at home. Patient has a CO2 of less than 5. Patient has been given fluids and had an insulin drip started. Patient will be referred to the hospitalist service to the ICU for admission. Vomiting is controlled with Zofran and Reglan. Patient understands and agrees with plan. (JAMILAH GEIGER) - Vital Signs Vital signs: Temp Pulse Resp BP Pulse Ox 99.5 F 96 23 H 132/73 H 100 11/22/16 22:02 11/22/16 20:00 11/22/16 22:02 11/22/16 22:02 11/22/16 22:02 - Laboratory Laboratory results interpreted by me: 11/22/16 11/22/16 11/22/16 14:20 14:20 14:20 WBC 18.7 H RBC 5.42 H Hct 47.2 H RDW 15.0 H Seg Neutrophils % 87.3 H Lymphocytes % 8.8 L Absolute Neutrophils 16.3 H VBG pH 7.04 L* VBG pCO2 25.5 L VBG HCO3 6.7 L Potassium 5.4 H Carbon Dioxide < 5 L* Glucose 455 H* Calcium 10.6 H Direct Bilirubin 0.7 H Total Protein 8.6 H Albumin 5.1 H Urine Protein Urine Glucose (UA) Urine Ketones Urine Blood 11/22/16 14:50 WBC RBC Hct RDW Seg Neutrophils % Lymphocytes % Absolute Neutrophils VBG pH VBG pCO2 VBG HCO3 Potassium Carbon Dioxide Glucose Calcium Direct Bilirubin Total Protein Albumin Urine Protein 30 H Urine Glucose (UA) >=500 H Urine Ketones 80 H Urine Blood SMALL H - Consults Dr. Gonzales Umaña Reason for consultation: 11/22/16 15:30 Discussed patient. She is accepted for admission to the ICU. (JESUS ALBERTO COATES ) Critical Care Note - Critical Care Note Total time excluding time spent on procedures (mins): 30 <JESUS ALBERTO COATES - Last Filed: 11/22/16 17:18> Discharge <JESUS ALBERTO COATES - Last Filed: 11/22/16 17:18> - Discharge Admitting Provider: Ben - [facility] Unit Admitted: ICU <JAMILAH GEIGER - Last Filed: 11/22/16 22:59> - Discharge Clinical Impression: Noncompliance DKA, type 1 Qualifiers: Diabetes mellitus complication detail: without coma Qualified Code(s): E10.10 - Type 1 diabetes mellitus with ketoacidosis without coma Nausea & vomiting Qualifiers: Vomiting type: unspecified Vomiting Intractability: non-intractable Qualified Code(s): R11.2 - Nausea with vomiting, unspecified Condition: Stable Disposition: ADMITTED INPATIENT Scribe Attestation: 11/22/16 22:58 I personally performed the services described in the documentation, reviewed and edited the documentation which was dictated to the scribe in my presence, and it accurately records my words and actions. (JAMILAH GEIGER) Scribe Documentation - Scribe Written by Mamie:: lesley Cagle, 11/22/16, 1525 acting as scribe for :: Jean Paul <JESUS ALBERTO COATES - Last Filed: 11/22/16 17:18>
[2016-11-22 15:06] LABS: ALANINE AMINOTRANSFERASE 40 U/L (9-52); ALBUMIN 5.1 g/dL (3.5-5.0); ALKALINE PHOSPHATASE 114 U/L (38-126); ASPARTATE AMINO TRANSFERASE 27 U/L (14-36); BILIRUBIN,DIRECT 0.7 mg/dL (0.0-0.4); BILIRUBIN,TOTAL 1.1 mg/dL (0.2-1.3); BLOOD UREA NITROGEN 14 mg/dL (7-20); CALCIUM 10.6 mg/dL (8.4-10.2); CHLORIDE 107 mmol/L (98-107); CREATININE RESULT 0.79 mg/dL (0.52-1.25); LIPASE 67.2 U/L (23-300); POTASSIUM 5.4 mmol/L (3.6-5.0); SODIUM 140.8 mmol/L (137-145); TOTAL PROTEIN 8.6 g/dL (6.3-8.2)
[2016-11-22 15:15] LABS: CARBON DIOXIDE < 5 mmol/L (22-30); GLUCOSE 455 mg/dL (75-110)
[2016-11-22] MEDS ORDERED: DEXTROSE 50%-WATER 25 GM/50 ML DISP.SYRIN IV PRN ×6 (15:15→16:01)
[2016-11-22] MEDS ORDERED: NORMAL SALINE 100 ML with INSULIN REGULAR, HUMAN 100 UNIT IV PRN ×2 (15:15)
[2016-11-22] MEDS ORDERED: GLUCAGON,HUMAN RECOMB 1 MG INJ IM PRN ×2 (15:15→16:01)
[2016-11-22] MEDS ORDERED: DEXTROSE 40% GEL 15 GM TUBE PO PRN ×6 (15:15→16:01)
[2016-11-22] MEDS ORDERED: DIPHENHYDRAMINE HCL 50 MG/ML VIAL IV ONE (15:34)
[2016-11-22] MEDS ORDERED: METOCLOPRAMIDE HCL INJ/PF 10 MG/2 ML SDV IV ONE (15:34)
[2016-11-22] MEDS ORDERED: INSULIN REG, HUMAN 100 UNIT/ML 3 ML VIAL (PYX) ONE (15:46)
[2016-11-22] MEDS ORDERED: ACETAMINOPHEN 325 MG TABLET PO PRN (15:51)
[2016-11-22] MEDS ORDERED: GLUCAGON,HUMAN RECOMB 1 MG INJ SUBCUT PRN (15:51)
[2016-11-22] MEDS ORDERED: ONDANSETRON HCL INJ/PF 4 MG/2 ML SDV IV PRN (15:56)
[2016-11-22 16:06] LABS: VENOUS BLOOD BASE EXCESS -22.7 mmol/L; VENOUS BLOOD HCO3 6.7 mmol/L (20-32); VENOUS BLOOD PCO2 25.5 mmHg (35-63)
[2016-11-22 16:08] LABS: VENOUS BLOOD PH 7.04 (7.30-7.42)
[2016-11-22 16:12] LABS: AMORPHOUS SEDIMENT,URINE TRACE /HPF; APPEARANCE,URINE CLEAR; BILIRUBIN,URINE NEGATIVE (NEGATIVE); GLUCOSE, URINE >=500 mg/dL (NEGATIVE); KETONES,URINE 80 mg/dL (NEGATIVE); LEUKOCYTE ESTERASE,URINE NEGATIVE (NEGATIVE); NITRITE,URINE NEGATIVE (NEGATIVE); PROTEIN,URINE 30 mg/dL (NEGATIVE); UROBILINOGEN,URINE NEGATIVE mg/dL (<2.0)
[2016-11-22 16:15] LABS: PHOSPHORUS 4.5 mg/dL (2.5-4.5)
[2016-11-22] MEDS: NORMAL SALINE 100 ML with INSULIN REGULAR, HUMAN 100 UNIT IV PRN ×4 (16:58→22:20)
[2016-11-22] MEDS ORDERED: ENOXAPARIN SODIUM INJ 40 MG/0.4 ML DISP.SYRIN SUBCUT ONE (17:00)
[2016-11-22] MEDS ORDERED: INFLUENZA ADLT QUAD (36MOS+) 2017-18 VAC 0.5 ML SYR IM PRN (17:42)
--- NOTE | 2016-11-22 18:03 | HISTORY AND PHYSICAL E ---
History and Physical NAME: ROSITA SCOTT : 1985 AGE: 31Y ADMITTED: 11/22/2016 ROOM: 608 CHIEF COMPLAINT: Nausea, vomiting. HISTORY OF THE PRESENT ILLNESS: The patient is an unfortunate 31-year-old female who has a history of diabetes type 1 for almost 20 years. She takes insulin Lantus and NovoLog sliding scale. She had a previous history of admission earlier this year with DKA. The patient had an insurance issue with insulin, she ran out of her insulin for the last week. She came yesterday with nausea and vomiting. Her blood sugar was high. She received insulin and discharged home from the ER. She came today with nausea, vomiting, abdominal pain, diarrhea. Her blood sugar is 455 and she is very acidotic. Her carbon dioxide is less than 5. Potassium 5.4. She had a leukocytosis also. Her white blood count is 18.7. She had diarrhea in the ER. Continued to have diarrhea and pain all over her body. IV fluids started and I ordered 10 units of insulin to be given in ER IV and started her immediately on insulin drip. The patient denied any fever or chills or urinary symptoms. She had urinalysis which did not show any infection. She does not have any fever or chills. REVIEW OF SYSTEMS: As per history of present illness. PAST MEDICAL HISTORY: The diabetes mellitus type 1, poorly controlled. History of previous admission with DKA. PAST SURGICAL HISTORY: Tubal ligation. FAMILY HISTORY: Positive for diabetes. SOCIAL HISTORY: She smokes every day. She is working. She had 2 children. MEDICATIONS: Lantus 16 units daily, NovoLog sliding scale. ALLERGIES: PENICILLIN. PHYSICAL EXAMINATION: GENERAL: Lying in bed, not in distress. VITAL SIGNS: Blood pressure is 147/79, heart rate 115, temperature 97.6. HEENT: Head is normocephalic, atraumatic. Mucous membrane is dry. Pupils are round and reactive to light and accommodation bilaterally. No jaundice. Extraocular movements intact. NECK: Supple. No increased JVD, no thyromegaly, and no lymphadenopathy. CARDIOVASCULAR: Normal S1, S2. Regular rate and rhythm. Tachycardiac. RESPIRATORY: Good air entry bilaterally, no wheezing, no crackles. ABDOMEN: Bowel sounds are hyperactive. No organomegaly. No tenderness. No rebound. MUSCULOSKELETAL: No edema. NEUROLOGIC: Awake, alert. SKIN: No rash. HEMATOLOGIC/LYMPHOCYTIC: No anemia, no easy bruising. LABORATORY DATA: White blood count is 18.7, hemoglobin 15. Potassium 5.4, sodium 140, carbon dioxide less than 5, blood glucose 455. Arterial venous blood gas showed pH 7.0, carbon dioxide less than 5. ASSESSMENT: The patient is a 31-year-old female who has a past medical history of diabetes type 1, previous admission with DKA. Her diabetes is poorly controlled. She has run out of medication. Admitted with nausea, vomiting, severe metabolic acidosis and DKA. 1. DKA. 2. Diabetes mellitus type 1, poorly controlled. 3. Severe metabolic acidosis from DKA. 4. Dehydration from nausea, vomiting due to DKA. 5. Nausea, vomiting. 6. Leukocytosis from DKA. 7. Hyperkalemia. PLAN: The patient will receive a total of 3 L of normal saline boluses in the ER. She already finished 1, we will do 2 more liters. Then we run maintenance normal saline at 200 mL per hour. We will change to D5 NS when blood sugar is less than 200. She will receive 10 units of insulin bolus and then insulin drip. Urinalysis, urine culture, blood culture, chest x-ray. shoe worker consulted to help with medication. CODE STATUS: Full. TIME SPENT: One hour. DICTATING PHYSICIAN: ANATLOY CAM M.D. [id number] PHY#: [id number] ID: [id number] JOB#: [id number] ACCT: [id number] cc:ANATOLY CAM M.D. >
[2016-11-22] MEDS ORDERED: DEXTROSE 5%-NORMAL SALINE 1,000 ML IV PRN (18:19)
[2016-11-22] MEDS: PROMETHAZINE HCL INJ 25 MG/1 ML VIAL IV PRN (19:40)
--- NOTE | 2016-11-22 20:29 | RADIOLOGY REPORT (SQ) ---
EXAM DESCRIPTION: CHEST SINGLE VIEW COMPLETED DATE/TIME: 11/22/2016 5:58 pm REASON FOR STUDY: DKA COMPARISON: 11/17/2013 EXAM PARAMETERS: NUMBER OF VIEWS: One view. TECHNIQUE: Single frontal radiographic view of the chest acquired. RADIATION DOSE: NA LIMITATIONS: None. FINDINGS: LUNGS AND PLEURA: No acute opacities, masses or pneumothorax. No pleural effusion. MEDIASTINUM AND HILAR STRUCTURES: No masses. Contour normal. HEART AND VASCULAR STRUCTURES: Heart normal in size. Normal vasculature. BONES: No acute findings. HARDWARE: None in the chest. OTHER: No other significant finding. IMPRESSION: NO ACUTE RADIOGRAPHIC FINDING IN THE CHEST. TECHNICAL DOCUMENTATION: JOB ID: [id number]
[2016-11-22 21:02] LABS: BLOOD UREA NITROGEN 12 mg/dL (7-20); CALCIUM 9.6 mg/dL (8.4-10.2); CHLORIDE 119 mmol/L (98-107); CREATININE RESULT 0.68 mg/dL (0.52-1.25); GLUCOSE 231 mg/dL (75-110); PHOSPHORUS 3.9 mg/dL (2.5-4.5); SODIUM 147.9 mmol/L (137-145)
[2016-11-22 21:13] LABS: CARBON DIOXIDE < 5 mmol/L (22-30)
[2016-11-22] MEDS: FAMOTIDINE INJ/PF 20 MG/2 ML SDV IV SCH (22:16)
[2016-11-22] MEDS: DEXTROSE 5%-1/2 NORMAL SALINE 1,000 ML IV PRN (22:19)
[2016-11-23 00:49] LABS: BLOOD UREA NITROGEN 11 mg/dL (7-20); CALCIUM 9.1 mg/dL (8.4-10.2); CREATININE RESULT 0.59 mg/dL (0.52-1.25); GLUCOSE 246 mg/dL (75-110)
[2016-11-23 01:04] LABS: ANION GAP 20 (5-19); CHLORIDE 120 mmol/L (98-107); POTASSIUM 4.7 mmol/L (3.6-5.0); SODIUM 146.8 mmol/L (137-145)
[2016-11-23 01:05] LABS: CARBON DIOXIDE 7 mmol/L (22-30)
[2016-11-23] MEDS: PROMETHAZINE HCL INJ 25 MG/1 ML VIAL IV PRN (03:36)
[2016-11-23] MEDS ORDERED: INSULIN REG, HUMAN 100 UNIT/ML 3 ML VIAL (PYX) ONE (05:21)
[2016-11-23] MEDS: NORMAL SALINE 100 ML with INSULIN REGULAR, HUMAN 100 UNIT IV PRN ×2 (05:27)
[2016-11-23] MEDS: DEXTROSE 5%-1/2 NORMAL SALINE 1,000 ML IV PRN (05:28)
[2016-11-23] MEDS: POTASSI CL 20 MEQ/D5-1/2NS 1L 1000 ML IV PRN ×2 (06:22→10:34)
[2016-11-23 06:27] LABS: HEMATOCRIT 36.6 % (36.0-47.0); HGB HCT DIFFERENCE 1.2; MEAN CORPUSCULAR HEMOGLOBIN 28.6 pg (27.0-33.4); MEAN CORPUSCULAR HGB CONC 34.4 g/dL (32.0-36.0); RED BLOOD COUNT 4.39 10^6/uL (3.72-5.28); WHITE BLOOD COUNT 18.7 10^3/uL (4.0-10.5)
[2016-11-23 06:28] LABS: ALANINE AMINOTRANSFERASE 36 U/L (9-52); ALBUMIN 3.5 g/dL (3.5-5.0); ALKALINE PHOSPHATASE 70 U/L (38-126); ANION GAP 14 (5-19); ASPARTATE AMINO TRANSFERASE 17 U/L (14-36); BILIRUBIN,DIRECT 0.3 mg/dL (0.0-0.4); BILIRUBIN,TOTAL 0.5 mg/dL (0.2-1.3); BLOOD UREA NITROGEN 9 mg/dL (7-20); CARBON DIOXIDE 12 mmol/L (22-30); CHLORIDE 116 mmol/L (98-107); CREATININE RESULT 0.52 mg/dL (0.52-1.25); GLUCOSE 214 mg/dL (75-110); POTASSIUM 3.8 mmol/L (3.6-5.0); SODIUM 141.7 mmol/L (137-145); TOTAL PROTEIN 6.3 g/dL (6.3-8.2)
[2016-11-23 06:35] LABS: HEMOGLOBIN 12.6 g/dL (12.0-15.5)
[2016-11-23 06:36] LABS: MEAN CORPUSCULAR VOLUME 83 fl (80-97)
[2016-11-23] MEDS: FAMOTIDINE INJ/PF 20 MG/2 ML SDV IV SCH ×2 (10:35→21:14)
[2016-11-23] MEDS: ENOXAPARIN SODIUM INJ 40 MG/0.4 ML DISP.SYRIN SUBCUT SCH (10:35)
[2016-11-23 10:55] LABS: ANION GAP 15 (5-19); BLOOD UREA NITROGEN 9 mg/dL (7-20); CALCIUM 8.9 mg/dL (8.4-10.2); CARBON DIOXIDE 11 mmol/L (22-30); CHLORIDE 116 mmol/L (98-107); CREATININE RESULT 0.52 mg/dL (0.52-1.25); GLUCOSE 94 mg/dL (75-110); POTASSIUM 3.8 mmol/L (3.6-5.0); SODIUM 142.3 mmol/L (137-145)
--- NOTE | 2016-11-23 13:38 | PDOC PROGRESS REPORT ---
Subjective Progress Note for:: 11/23/16 Subjective:: Patient reports that her nausea is doing better. Physical Exam Vital Signs: Temp Pulse Resp BP Pulse Ox 98.0 F 90 18 110/66 98 11/23/16 12:00 11/23/16 12:00 11/23/16 12:00 11/23/16 12:00 11/23/16 12:00 Intake & Output 11/22/16 11/23/16 11/24/16 06:59 06:59 06:59 Intake Total 3968 Output Total 4100 500 Balance -132 -500 Weight 63.1 kg 64.864 kg General appearance: PRESENT: no acute distress Eye exam: PRESENT: conjunctiva pink. ABSENT: scleral icterus Mouth exam: PRESENT: moist, tongue midline Neck exam: ABSENT: JVD Respiratory exam: PRESENT: clear to auscultation roya. ABSENT: rales, rhonchi, wheezes Cardiovascular exam: PRESENT: RRR. ABSENT: diastolic murmur, rubs, systolic murmur GI/Abdominal exam: PRESENT: normal bowel sounds, soft. ABSENT: distended, guarding, mass, organolmegaly, rebound, tenderness Extremities exam: ABSENT: calf tenderness, clubbing, pedal edema Neurological exam: PRESENT: alert, awake, oriented to person, oriented to place , oriented to time, oriented to situation, CN II-XII grossly intact. ABSENT: motor sensory deficit Psychiatric exam: PRESENT: appropriate affect Skin exam: PRESENT: dry, intact, warm. ABSENT: cyanosis, rash Results Laboratory Results: 11/23/16 05:18 11/23/16 09:53 11/22/16 11/23/16 11/23/16 20:30 00:25 05:18 WBC 18.7 H RBC 4.39 Hgb 12.6 D Hct 36.6 MCV 83 D MCH 28.6 MCHC 34.4 RDW 15.0 H Plt Count 293 Sodium 147.9 H 146.8 H Potassium 6.0 H* 4.7 D Chloride 119 H 120 H Carbon Dioxide < 5 L* 7 L* Anion Gap Not Reportable 20 H BUN 12 11 Creatinine 0.68 0.59 Est GFR ( Amer) > 60 > 60 Est GFR (Non-Af Amer) > 60 > 60 Glucose 231 H 246 H Calcium 9.6 9.1 Phosphorus 3.9 Magnesium 2.0 Total Bilirubin AST ALT Alkaline Phosphatase Total Protein Albumin 11/23/16 11/23/16 05:18 09:53 WBC RBC Hgb Hct MCV MCH MCHC RDW Plt Count Sodium 141.7 142.3 Potassium 3.8 3.8 Chloride 116 H 116 H Carbon Dioxide 12 L 11 L Anion Gap 14 15 BUN 9 9 Creatinine 0.52 0.52 Est GFR ( Amer) > 60 > 60 Est GFR (Non-Af Amer) > 60 > 60 Glucose 214 H 94 Calcium 9.0 8.9 Phosphorus Magnesium Total Bilirubin 0.5 AST 17 ALT 36 Alkaline Phosphatase 70 Total Protein 6.3 Albumin 3.5 Impressions: Chest X-Ray 11/22/16 15:53 IMPRESSION: NO ACUTE RADIOGRAPHIC FINDING IN THE CHEST. Assessment & Plan - Diagnosis (1) DKA (diabetic ketoacidoses) Is this a current diagnosis for this admission?: Yes Plan: Patient is still acidotic but it is improving. Will continue with IV fluids and insulin drip. (2) Nausea & vomiting Qualifiers: Vomiting type: unspecified Vomiting Intractability: non-intractable Qualified Code(s): R11.2 - Nausea with vomiting, unspecified Is this a current diagnosis for this admission?: Yes Plan: This has improved. Will try her on a diet if she continues to improve. (3) Leukocytosis Is this a current diagnosis for this admission?: Yes Plan: Patient has elevated white blood cell count most likely secondary to stress. Patient has no evidence for active infection at this time. - Time Time Spent with patient: 25-34 minutes - Inpatient Certification Medical Necessity: Need For IV Fluids
[2016-11-23] MEDS ORDERED: DEXTROSE 5%-1/2 NORMAL SALINE 1,000 ML IV PRN (13:41)
[2016-11-23] MEDS ORDERED: INFLUENZA ADLT QUAD (36MOS+) 2017-18 VAC 0.5 ML SYR IM PRN (15:00)
[2016-11-23] MEDS ORDERED: ONDANSETRON HCL INJ/PF 4 MG/2 ML SDV IV PRN (15:00)
[2016-11-23 15:24] LABS: ANION GAP 11 (5-19); BLOOD UREA NITROGEN 8 mg/dL (7-20); CALCIUM 9.2 mg/dL (8.4-10.2); CARBON DIOXIDE 13 mmol/L (22-30); CHLORIDE 115 mmol/L (98-107); CREATININE RESULT 0.52 mg/dL (0.52-1.25); GLUCOSE 129 mg/dL (75-110); POTASSIUM 3.4 mmol/L (3.6-5.0); SODIUM 139.1 mmol/L (137-145)
[2016-11-23] MEDS ORDERED: DEXTROSE 50%-WATER 25 GM/50 ML DISP.SYRIN IV PRN ×2 (18:02)
[2016-11-23] MEDS ORDERED: DEXTROSE 40% GEL 15 GM TUBE PO PRN ×2 (18:02)
[2016-11-23] MEDS ORDERED: GLUCAGON,HUMAN RECOMB 1 MG INJ IM PRN (18:02)
[2016-11-23 18:40] LABS: ANION GAP 9 (5-19); BLOOD UREA NITROGEN 7 mg/dL (7-20); CARBON DIOXIDE 13 mmol/L (22-30); CHLORIDE 116 mmol/L (98-107); CREATININE RESULT 0.52 mg/dL (0.52-1.25); GLUCOSE 142 mg/dL (75-110); POTASSIUM 3.3 mmol/L (3.6-5.0); SODIUM 137.8 mmol/L (137-145)
[2016-11-23] MEDS ORDERED: INSULIN GLARGINE,HUM.REC.ANLOG 300 UNIT/3 ML INSULN.PEN SUBCUT SCH (22:00)
[2016-11-23 22:11] LABS: ANION GAP 10 (5-19); BLOOD UREA NITROGEN 5 mg/dL (7-20); CARBON DIOXIDE 14 mmol/L (22-30); CHLORIDE 118 mmol/L (98-107); CREATININE RESULT 0.47 mg/dL (0.52-1.25); GLUCOSE 76 mg/dL (75-110); POTASSIUM 3.1 mmol/L (3.6-5.0); SODIUM 141.8 mmol/L (137-145)
[2016-11-23] MEDS ORDERED: POTASSI CL 20 MEQ/D5-1/2NS 1L 1,000 ML IV PRN (23:40)
[2016-11-24] MEDS: POTASSI CL 20 MEQ/50 ML RIDER 20 MEQ/50 ML RTUPB IV SCH ×2 (00:15→07:42)
[2016-11-24 06:37] LABS: ABSOLUTE EOSINOPHILS # (AUTO) 0.1 10^3/uL (0.0-0.6); ABSOLUTE LYMPHOCYTES (AUTO) 2.3 10^3/uL (0.5-4.7); ABSOLUTE MONOCYTES (AUTO) 0.5 10^3/uL (0.1-1.4); ABSOLUTE NEUT (AUTO) 5.1 10^3/uL (1.7-8.2); BASOPHILS % (AUTO) 0.3 % (0-2); EOSINOPHILS % (AUTO) 0.6 % (0-6); HEMATOCRIT 32.2 % (36.0-47.0); HEMOGLOBIN 11.3 g/dL (12.0-15.5); HGB HCT DIFFERENCE 1.7; LYMPHOCYTES % (AUTO) 28.5 % (13-45); MEAN CORPUSCULAR HEMOGLOBIN 28.9 pg (27.0-33.4); MEAN CORPUSCULAR HGB CONC 35.2 g/dL (32.0-36.0); MEAN CORPUSCULAR VOLUME 82 fl (80-97); MONOCYTES % (AUTO) 6.7 % (3-13); RED BLOOD COUNT 3.92 10^6/uL (3.72-5.28); RED CELL DISTRIBUTION WIDTH 14.9 % (11.5-14.0); SEGMENTED NEUTROPHILS % (AUTO) 63.9 % (42-78); WHITE BLOOD COUNT 7.9 10^3/uL (4.0-10.5)
[2016-11-24] MEDS ORDERED: POTASSI CL 20 MEQ/50 ML RIDER 20 MEQ/50 ML RTUPB IV ONE (07:38)
[2016-11-24] MEDS: INSULIN LISPRO 100 UNIT/ML 3 ML VIAL SUBCUT PRN ×2 (08:11→12:32)
[2016-11-24] MEDS: ENOXAPARIN SODIUM INJ 40 MG/0.4 ML DISP.SYRIN SUBCUT SCH (11:17)
[2016-11-24] MEDS: FAMOTIDINE INJ/PF 20 MG/2 ML SDV IV SCH (11:18)
--- NOTE | 2016-11-24 16:56 | PDOC DISCHARGE SUMMARY ---
General - Admit/Disc Date/PCP Admission Date/Primary Care Provider: 11/22/16 15:51 Discharge Date: 11/24/16 - Discharge Diagnosis (1) DKA (diabetic ketoacidoses) Is this a current diagnosis for this admission?: Yes (2) Type 1 diabetes mellitus Is this a current diagnosis for this admission?: Yes - Additional Information Resuscitation Status: Full Code Discharge Diet: Diabetic - No concentrated sweets Discharge Activity: Activity As Tolerated, Balance Activity w/Rest Home Medications: Insulin Aspart [Novolog Flexpen] See Protocol SQ MEALS 11/22/16 Insulin Glargine,Hum.rec.anlog [Lantus Solostar] 60 units SQ DAILY 11/22/16 NPH, Human Insulin Isophane [Humulin N (NPH) Insulin 100 Unit/1 ml 3 ml] 30 unit SUBCUT Q12H 30 Days unit 11/24/16 Additional Information: Monitor blood sugar 3 times a day and record bring to next physician visit. Resume Lantus when available. Discontinue NPH when Lantus is available. History of Present Illness Patient complains of: Nausea and vomiting History of Present Illness: ROSITA SCOTT is a 31 year old female with insulin-dependent diabetes mellitus ran out of her insulin long-acting which is Lantus for about 1 week. She has been trying to manage her blood sugar with NovoLog. Blood sugars remain high and the patient started to develop nausea and vomiting. She was seen earlier in the emergency room and discharged home. Upon return to the emergency room she has a mildly elevated potassium and elevated WBC. He was given insulin drip and IV fluids and was referred for admission. Details please refer to history and physical examination performed by the admitting physician. Hospital Course Hospital Course: The patient was hydrated with intravenous fluids and continued on insulin drip. Hyperkalemia corrected eventually and anion gap was monitored until 8 has normalized. During the process of trying to correct the anion gap the patient required transition to dextrose containing IV fluid for resuscitation. Eventually once the anion gap normalized the patient was transitioned to subcutaneous insulin and diet was begun. Dextrose containing IV fluids was discontinued. The patient was started on subcutaneous Lantus and likewise NovoLog. The patient significantly improve and her leukocytosis resolved. However patient could not afford Lantus and therefore supply planner was contacted. Patient was set up follow-up with the [facility] where she can get Lantus but will not be available for at least a month. She was therefore placed on NPH while waiting for the Lantus and advised to discontinue it when and this is available. The rest of the hospital stays unremarkable. Physical Exam Vital Signs: Temp Pulse Resp BP Pulse Ox 98.3 F 84 16 121/71 100 11/24/16 11:11 11/24/16 14:00 11/24/16 11:11 11/24/16 11:11 11/24/16 11:11 Intake & Output 11/23/16 11/24/16 11/25/16 06:59 06:59 06:59 Intake Total 3968 5183 250 Output Total 4100 500 Balance -132 4683 250 Weight 63.1 kg 67.8 kg General appearance: PRESENT: no acute distress, cooperative Head exam: PRESENT: normocephalic Eye exam: PRESENT: EOMI Mouth exam: PRESENT: moist, neck supple Neck exam: ABSENT: JVD Respiratory exam: PRESENT: clear to auscultation roya Cardiovascular exam: PRESENT: RRR. ABSENT: gallop GI/Abdominal exam: PRESENT: soft. ABSENT: distended, tenderness Extremities exam: ABSENT: pedal edema Neurological exam: PRESENT: alert, awake, oriented to situation Skin exam: PRESENT: dry, warm. ABSENT: cyanosis Results Laboratory Results: 11/24/16 05:30 11/23/16 21:54 11/23/16 11/23/16 11/24/16 18:15 21:54 05:30 WBC 7.9 RBC 3.92 Hgb 11.3 L Hct 32.2 L MCV 82 MCH 28.9 MCHC 35.2 RDW 14.9 H Plt Count 224 Seg Neutrophils % 63.9 Lymphocytes % 28.5 Monocytes % 6.7 Eosinophils % 0.6 Basophils % 0.3 Absolute Neutrophils 5.1 Absolute Lymphocytes 2.3 Absolute Monocytes 0.5 Absolute Eosinophils 0.1 Absolute Basophils 0.0 Sodium 137.8 141.8 Potassium 3.3 L 3.1 L Chloride 116 H 118 H Carbon Dioxide 13 L 14 L Anion Gap 9 10 BUN 7 5 L Creatinine 0.52 0.47 L Est GFR ( Amer) > 60 > 60 Est GFR (Non-Af Amer) > 60 > 60 Glucose 142 H 76 Calcium 9.0 9.0 Impressions: Chest X-Ray 11/22/16 15:53 IMPRESSION: NO ACUTE RADIOGRAPHIC FINDING IN THE CHEST. Qualifiers PATEINT BEING DISCHARGED WITH ANY OF THE FOLLOWING DIAGNOSIS?: No Plan Discharge Plan: [facility]. Time Spent: Less than 30 Minutes
[2016-11-24 17:34] VITALS: BP 96/63
== END 2016-11-24 17:56 | disposition home or self-care (01) | DRG 639 ==
LOC: ER 13:38 → UNDOADMIN 15:38 → EH 15:38 → ICU 16:45 → 3W 11-23 11:18
PROVIDERS: ADMIT Internal Medicine; ATTEND Internal Medicine
PROC: 3E0234Z Introduction of Serum, Toxoid and Vaccine into Muscle, Percutaneous Approach (ICD-10-PCS; principal; 2016-11-24)
DX: E10.10 Type 1 diabetes mellitus with ketoacidosis without coma (principal); T38.3X6A Underdosing of insulin and oral hypoglycemic [antidiabetic] drugs, initial encounter; E78.00 Pure hypercholesterolemia, unspecified; E86.0 Dehydration; E87.5 Hyperkalemia; D72.829 Elevated white blood cell count, unspecified; F17.210 Nicotine dependence, cigarettes, uncomplicated; Z91.120 Patient's intentional underdosing of medication regimen due to financial hardship; Y92.89 Other specified places as the place of occurrence of the external cause; Z79.4 Long term (current) use of insulin; Z88.0 Allergy status to penicillin; Z23 Encounter for immunization
CPT/HCPCS: 36415; 71010; 80048; 80053; 81001; 82803; 82962; 83690; 83735; 84100; 85025; 85027; 87040; 87086; 90686; 96361; 96374; 99291; J1650; J1815; J2405; J2550; J2765; J3480; J3490; J7030; S0028

== ENCOUNTER 2017-12-01 12:17 | Emergency (ER) | payer SELFPAY ==
[2017-12-01] MEDS ORDERED: GUAIFENESIN 600 MG TABLET.SA PO ONE (14:23)
[2017-12-01] MEDS ORDERED: LORATADINE 10 MG TABLET PO ONE (14:23)
[2017-12-01] MEDS ORDERED: PSEUDOEPHEDRINE HCL 30 MG TABLET PO ONE (14:23)
--- NOTE | 2017-12-01 14:31 | ER Document Report ---
ED General - General Chief Complaint: Pain All Over Stated Complaint: BODY ACHES,FEVER,CHILLS Time Seen by Provider: 12/01/17 14:12 Mode of Arrival: Ambulatory Information source: Patient Notes: 32-year-old female presented to ED for complaint of body aches fever chills for the last 3 days with runny nose and postnasal drip. She is a type I diabetic smokes a pack a day drinks socially and smokes pot. Is alert and oriented respirations regular and unlabored speaking in full sentences. TRAVEL OUTSIDE OF THE [place] IN LAST 30 DAYS: No - HPI Onset: Other Onset/Duration: Gradual, Worse Quality of pain: Achy Severity: Moderate Pain Level: 3 Associated symptoms: Body/muscle aches, Chills, Nonproductive cough, Fever, Rhinnorhea, Sinus pain/drainage Exacerbated by: Denies Relieved by: Denies Similar symptoms previously: Yes Recently seen / treated by doctor: No - Related Data Allergies/Adverse Reactions: Penicillins Allergy (Verified 12/01/17 12:20) Past Medical History - General Information source: Patient - Social History Smoking Status: Current Every Day Smoker Cigarette use (# per day): Yes - Pack per day Smoking Education Provided: Yes - 4 minutes Frequency of alcohol use: Social Drug Abuse: Marijuana Occupation: [employer] Lives with: Family Family History: Reviewed & Not Pertinent Patient has suicidal ideation: No Patient has homicidal ideation: No - Past Medical History Cardiac Medical History: Reports: Hx Hypercholesterolemia Pulmonary Medical History: Reports: None EENT Medical History: Reports: None Neurological Medical History: Reports: None Endocrine Medical History: Reports: Hx Diabetes Mellitus Type 1 Renal/ Medical History: Reports: None Malignancy Medical History: Reports: None GI Medical History: Reports: None Musculoskeletal Medical History: Reports None Skin Medical History: Reports None Psychiatric Medical History: Reports: Hx Depression Traumatic Medical History: Reports: None Infectious Medical History: Reports: None Past Surgical History: Reports: Hx Tubal Ligation - Immunizations Hx Diphtheria, Pertussis, Tetanus Vaccination: No Review of Systems - Review of Systems Constitutional: Chills, Fever, Recent illness EENT: Nose discharge, Sinus discharge Cardiovascular: No symptoms reported Respiratory: Cough Gastrointestinal: No symptoms reported Genitourinary: No symptoms reported Female Genitourinary: No symptoms reported Musculoskeletal: Muscle pain, Muscle stiffness Skin: No symptoms reported Hematologic/Lymphatic: No symptoms reported Neurological/Psychological: No symptoms reported Physical Exam - Vital signs Vitals: Temp Pulse Resp BP Pulse Ox 98.3 F 100 16 119/71 97 12/01/17 12:28 12/01/17 12:28 12/01/17 12:28 12/01/17 12:28 12/01/17 12:28 Interpretation: Normal - General General appearance: Appears well, Alert - HEENT Head: Normocephalic, Atraumatic Eyes: Normal Pupils: PERRL Ears: Normal External canal: Normal Tympanic membrane: Normal Sinus: Normal Nasal: Purulent discharge, Swelling Mucous membranes: Normal Pharynx: Post nasal drainage Neck: Normal - Respiratory Respiratory status: No respiratory distress Chest status: Nontender Breath sounds: Normal Chest palpation: Normal - Cardiovascular Rhythm: Regular Heart sounds: Normal auscultation Murmur: No - Abdominal Inspection: Normal Distension: No distension Bowel sounds: Normal Tenderness: Nontender Organomegaly: No organomegaly - Back Back: Normal, Nontender - Extremities General upper extremity: Normal inspection, Nontender, Normal color, Normal ROM , Normal temperature General lower extremity: Normal inspection, Nontender, Normal color, Normal ROM , Normal temperature, Normal weight bearing. No: Inna's sign - Neurological Neuro grossly intact: Yes Cognition: Normal Orientation: AAOx4 Ming Coma Scale Eye Opening: Spontaneous Haworth Coma Scale Verbal: Oriented Haworth Coma Scale Motor: Obeys Commands Ming Coma Scale Total: 15 Speech: Normal Motor strength normal: LUE, RUE, LLE, RLE Sensory: Normal - Psychological Associated symptoms: Normal affect, Normal mood - Skin Skin Temperature: Warm Skin Moisture: Dry Skin Color: Normal Course - Re-evaluation Re-evalutation: 12/01/17 15:42 Assessment consistent with a viral infection. Patient was treated with Claritin Sudafed Mucinex in the emergency room. She was instructed to use these at home as well as Tylenol Motrin. Patient was in instructed to follow- up with her primary doctor and she was put off work until Wednesday. Patient was discharged home. - Vital Signs Vital signs: Temp Pulse Resp BP Pulse Ox 97.9 F 86 16 128/62 H 99 12/01/17 15:48 12/01/17 15:48 12/01/17 15:48 12/01/17 15:48 12/01/17 15:48 - Laboratory Laboratory results interpreted by me: 12/01/17 14:43 POC Glucose 281 H Discharge - Discharge Clinical Impression: Viral illness Condition: Stable Disposition: HOME, SELF-CARE Instructions: Family Physicians / Practices Additional Instructions: Viral Syndrome The physician has diagnosed a viral infection. Viruses not only cause "colds," but can cause many different symptoms including generalized aching, fever, headache, cough, diarrhea, nausea, vomiting, and fatigue. The treatment, for the most part, is simply relief of symptoms. This means that antibiotics are usually not given. Rest, fluids, pain medications and, occasionally, medication for the specific symptoms that are most bothersome will be prescribed. Use good handwashing to avoid passing the virus to others. Shared toys should be cleaned with disinfectant. Clean the toilets, sinks, and counter surfaces in bathrooms. Launder clothing in hot water. Contact the physician if you develop any new or unusual symptoms such as severe headache, stiff neck, high fever, chest pain, productive cough, or shortness of breath. You should be rechecked if you don't see marked improvement within seven to 10 days. Acetaminophen Acetaminophen may be taken for pain relief or fever control. It's much safer than aspirin, offering a wider range of "safe" dosages. It is safe during . Some brand names are Tylenol, Panadol, Datril, Anacin 3, Tempra, and Liquiprin. Acetaminophen can be repeated every four hours. The following are maximum recommended dosages: WEIGHT Dose Drops Elixir Chewable( 80mg) (LBS.) drprs=droppers tsp=teaspoon 6 40 mg .4 ml (1/2) 6-11 80 mg .8 ml (full) 1/2 tsp 1 tab 12-16 120 mg 1 1/2 drprs 3/4 tsp 1 1/2 tabs 17-23 160 mg 2 drprs 1 tsp 2 tabs 24-30 240 mg 3 drprs 1 1/2 tsp 3 tabs 30-35 320 mg 2 tsp 4 tabs 36-41 360 mg 2 1/4 tsp 4 1 /2 tabs 42-47 400 mg 2 1/2 tsp 5 tabs 48-53 480 mg 3 tsp 6 tabs 54-59 520 mg 3 1/4 tsp 6 1 /2 tabs 60-64 560 mg 3 1/2 tsp 7 tabs 65-70 600 mg 3 3/4 tsp 7 1 /2 tabs 71-76 640 mg 4 tsp 8 tabs 77-82 720 mg 4 1/2 tsp 9 tabs 83-88 800 mg 5 tsp 10 tabs >89 pounds or adults 650 mg to 900 mg Acetaminophen can be repeated every four hours. Maximum daily dose not to exceed 4000 mg. These maximum recommended dosages are slightly higher than the dosages written on the product container, but these dosages are very safe and well below the toxic dosage for acetaminophen. USE OF [id number] IBUPROFEN: Ibuprofen (Advil, Nuprin, Medipren, Motrin IB) is a medication for fever and pain control. In addition, it has anti- inflammatory effects which may be beneficial, especially in the treatment of injuries. It's best to take ibuprofen with food. Persons with ulcer disease or allergy to aspirin should notify their physician of this before taking ibuprofen. Ibuprofen can be given every four to six hours, for a total of four doses daily. Age Pain or fever dose Antiinflammatory dose 6-8 yr 200 mg (1 tab) 200 mg (1 tab) 9-11 yr 200 mg (1 tab) 200-400 mg (1-2 tab) 11-14 yr 200-400 mg (1-2 tab) 400 mg (2 tab) 15-adult 400 mg (2 tab) 600 mg (3 tab) FOLLOW-UP CARE: If you have been referred to a physician for follow-up care, call the physician s office for an appointment as you were instructed or within the next two days. If you experience worsening or a significant change in your symptoms, notify the physician immediately or return to the Emergency Department at any time for re-evaluation. Forms: Smoking Cessation Education, Return to Work
[2017-12-01 15:21] LABS: A TYPE INFLUENZA AG NEGATIVE (NEGATIVE); B INFLUENZA AG NEGATIVE (NEGATIVE)
[2017-12-01 15:50] VITALS: BP 128/62
== END 2017-12-01 15:50 | disposition home or self-care (01) ==
LOC: ER 12:17
DX: B34.9 Viral infection, unspecified (principal); M79.10 Myalgia, unspecified site; R50.9 Fever, unspecified; R09.89 Other specified symptoms and signs involving the circulatory and respiratory systems; R09.82 Postnasal drip; E10.9 Type 1 diabetes mellitus without complications; F17.210 Nicotine dependence, cigarettes, uncomplicated
CPT/HCPCS: 82962; 87804; 99283; 99406

== ENCOUNTER 2018-02-24 14:22 | Emergency (ER) | payer SELFPAY ==
[2018-02-24 14:38] VITALS: BP 128/61
== END 2018-02-24 16:33 | disposition left against medical advice (07) ==
LOC: ER 14:22
DX: Z53.21 Procedure and treatment not carried out due to patient leaving prior to being seen by health care provider (principal)

== ENCOUNTER 2018-02-25 04:31 | Inpatient (IN) | payer SELFPAY ==
[2018-02-25] MEDS ORDERED: NORMAL SALINE 1000 ML 1,000 ML IV ONE ×2 (05:00→05:50)
[2018-02-25 05:15] LABS: ABSOLUTE BASOPHILS # (AUTO) 0.1 10^3/uL (0.0-0.2); ABSOLUTE EOSINOPHILS # (AUTO) 0.1 10^3/uL (0.0-0.6); ABSOLUTE LYMPHOCYTES (AUTO) 1.3 10^3/uL (0.5-4.7); ABSOLUTE MONOCYTES (AUTO) 0.5 10^3/uL (0.1-1.4); ABSOLUTE NEUT (AUTO) 7.2 10^3/uL (1.7-8.2); BASOPHILS % (AUTO) 0.7 % (0-2); EOSINOPHILS % (AUTO) 0.6 % (0-6); HEMATOCRIT 47.1 % (36.0-47.0); HEMOGLOBIN 15.3 g/dL (12.0-15.5); LYMPHOCYTES % (AUTO) 14.5 % (13-45); MEAN CORPUSCULAR HEMOGLOBIN 27.3 pg (27.0-33.4); MEAN CORPUSCULAR HGB CONC 32.6 g/dL (32.0-36.0); MEAN CORPUSCULAR VOLUME 84 fl (80-97); MONOCYTES % (AUTO) 5.5 % (3-13); PLATELET COUNT 371 10^3/uL (150-450); RED BLOOD COUNT 5.63 10^6/uL (3.72-5.28); RED CELL DISTRIBUTION WIDTH 15.5 % (11.5-14.0); SEGMENTED NEUTROPHILS % (AUTO) 78.7 % (42-78); TOTAL CELLS COUNTED % (AUTO) 100 %; WHITE BLOOD COUNT 9.2 10^3/uL (4.0-10.5)
[2018-02-25 05:25] LABS: VENOUS BLOOD BASE EXCESS -14.4 mmol/L; VENOUS BLOOD HCO3 13.1 mmol/L (20-32); VENOUS BLOOD PCO2 36.4 mmHg (35-63)
[2018-02-25 05:27] LABS: VENOUS BLOOD PH 7.17 (7.30-7.42)
--- NOTE | 2018-02-25 05:29 | ER Document Report ---
ED GI/ - General Mode of Arrival: Ambulatory Information source: Patient TRAVEL OUTSIDE OF THE [place] IN LAST 30 DAYS: No <VIELKA GOMEZ - Last Filed: 02/25/18 05:43> <PEPITO ESTES - Last Filed: 02/25/18 06:40> - General Chief Complaint: Vomiting Stated Complaint: VOMITING Time Seen by Provider: 02/25/18 05:16 Notes: 32-year-old female with type 1 diabetes that presents to the emergency department today with complaints of vomiting. Patient states yesterday she had a sore throat and just felt generally ill. Patient states yesterday she also had 2 episodes of vomiting which is unusual for her unless she is in DKA. Amira nt states that she came to the hospital to "get checked out for DKA" yesterday but it was so busy that she left. Patient states this morning when she was getting up for work she felt nauseated again and had 2 episodes of vomiting. Patient denies any abdominal pain but does complain of generalized myalgias. (VIELKA GOMEZ) - Related Data Allergies/Adverse Reactions: Penicillins Allergy (Verified 02/24/18 14:23) Past Medical History - General Information source: Patient - Social History Smoking Status: Current Every Day Smoker Cigarette use (# per day): Yes Chew tobacco use (# tins/day): No Frequency of alcohol use: None Drug Abuse: None Family History: Reviewed & Not Pertinent Patient has suicidal ideation: No Patient has homicidal ideation: No - Past Medical History Cardiac Medical History: Reports: Hx Hypercholesterolemia Endocrine Medical History: Reports: Hx Diabetes Mellitus Type 1 Psychiatric Medical History: Reports: Hx Depression Past Surgical History: Reports: Hx Tubal Ligation - Immunizations Hx Diphtheria, Pertussis, Tetanus Vaccination: No <VIELKA GOMEZ - Last Filed: 02/25/18 05:43> Review of Systems - Review of Systems Constitutional: No symptoms reported EENT: No symptoms reported Cardiovascular: No symptoms reported Respiratory: No symptoms reported Gastrointestinal: See HPI, Nausea, Vomiting. denies: Abdominal pain Genitourinary: No symptoms reported Female Genitourinary: No symptoms reported Musculoskeletal: See HPI, Muscle pain Skin: No symptoms reported Hematologic/Lymphatic: No symptoms reported Neurological/Psychological: No symptoms reported -: Yes All other systems reviewed and negative <VIELKA GOMEZ - Last Filed: 02/25/18 05:43> Physical Exam <VIELKA GOMEZ - Last Filed: 02/25/18 05:43> - Vital signs Vitals: Temp Pulse Resp BP Pulse Ox 97.3 F 96 18 134/85 H 99 02/25/18 04:40 02/25/18 04:40 02/25/18 04:40 02/25/18 04:40 02/25/18 04:40 - Notes Notes: PHYSICAL EXAM GENERAL: Alert, interacts well. Appears uncomfortable. HEAD: Normocephalic, atraumatic. EYES: Pupils equal, round, and reactive to light. Extraocular movements intact. ENT: Oral mucosa moist, tongue midline. NECK: Full range of motion. Supple. Trachea midline. LUNGS: Clear to auscultation bilaterally, no wheezes, rales, or rhonchi. No respiratory distress. HEART: Regular rate and rhythm. No murmurs, gallops, or rubs. ABDOMEN: Soft, non-tender. Non-distended. Bowel sounds present in all 4 quadrants. No guarding, rigidity, or rebound. EXTREMITIES: Moves all 4 extremities spontaneously. No edema, radial and dorsalis pedis pulses 2/4 bilaterally. No cyanosis. NEUROLOGICAL: Alert and oriented x3. Normal speech. PSYCH: Normal affect, normal mood. SKIN: Warm, dry, normal turgor. No rashes or lesions noted. (JASONVIELKA) Course - Laboratory Result Diagrams: 02/25/18 05:02 02/25/18 05:02 <VIELKA GOMEZ - Last Filed: 02/25/18 05:43> - Laboratory Result Diagrams: 02/25/18 05:02 02/25/18 05:02 <PEPITO ESTES - Last Filed: 02/25/18 06:40> - Re-evaluation Re-evalutation: 02/25/18 06:39 CBC unremarkable, CMP shows pseudohyponatremia with sodium 135.7, potassium is high at 5.3, she does have an anion gap of 20 and low CO2 of 15, glucose is elevated at 551, venous blood gas shows a pH of 7.17. Chest x-ray is unremarkable. test is negative. Patient is in DKA, hydrated using normal saline and started on an insulin drip. Discussed with Dr. Walker who accepts the patient for admission, states the [facility] hospitalist will see this patient and do the admission. (PEPITO ESTES) - Vital Signs Vital signs: Temp Pulse Resp BP Pulse Ox 97.3 F 96 11 L 136/83 H 100 02/25/18 04:40 02/25/18 04:40 02/25/18 05:05 02/25/18 05:05 02/25/18 05:05 - Laboratory Laboratory results interpreted by me: 02/25/18 02/25/18 02/25/18 05:02 05:02 05:02 RBC 5.63 H Hct 47.1 H RDW 15.5 H Seg Neutrophils % 78.7 H VBG pH 7.17 L* VBG HCO3 13.1 L Sodium 135.7 L Potassium 5.3 H Carbon Dioxide 15 L Anion Gap 20 H Glucose 551 H* Total Protein 8.5 H Albumin 5.3 H Critical Care Note - Critical Care Note Total time excluding time spent on procedures (mins): 35 <PEPITO ESTES - Last Filed: 02/25/18 06:40> Discharge <VIELKA GOMEZ - Last Filed: 02/25/18 05:43> - Discharge Admitting Provider: Ben Walker Unit Admitted: ICU <PEPITO ESTES - Last Filed: 02/25/18 06:40> - Discharge Clinical Impression: DKA, type 1 Qualifiers: Diabetes mellitus complication detail: without coma Qualified Code(s): E10.10 - Type 1 diabetes mellitus with ketoacidosis without coma Condition: Fair Disposition: ADMITTED INPATIENT Scribe Attestation: 02/25/18 06:40 I personally performed the services described in the documentation, reviewed and edited the documentation which was dictated to the scribe in my presence, and it accurately records my words and actions. (PEPITO ESTES) Scribe Documentation - Scribe Written by Tutu:: Tutu Moore, 02/25/2018 0529 acting as scribe for :: Dk <VIELKA GOMEZ - Last Filed: 02/25/18 05:43>
[2018-02-25 05:38] LABS: BLOOD UREA NITROGEN 15 mg/dL (7-20); CALCIUM 10.2 mg/dL (8.4-10.2)
[2018-02-25 05:39] LABS: ALANINE AMINOTRANSFERASE 28 U/L (9-52); ALBUMIN 5.3 g/dL (3.5-5.0); ALKALINE PHOSPHATASE 101 U/L (38-126); ASPARTATE AMINO TRANSFERASE 27 U/L (14-36); BILIRUBIN,DIRECT 0.3 mg/dL (0.0-0.4); BILIRUBIN,TOTAL 0.9 mg/dL (0.2-1.3); POTASSIUM 5.3 mmol/L (3.6-5.0); TOTAL PROTEIN 8.5 g/dL (6.3-8.2)
[2018-02-25] MEDS ORDERED: INSULIN REG, HUMAN 100 UNIT/ML 3 ML VIAL (PYX) IV ONE (05:40)
[2018-02-25 06:03] LABS: CARBON DIOXIDE 15 mmol/L (22-30); CHLORIDE 101 mmol/L (98-107); SODIUM 135.7 mmol/L (137-145)
[2018-02-25 06:16] LABS: ANION GAP 20 (5-19); GLUCOSE 551 mg/dL (75-110)
[2018-02-25] MEDS ORDERED: ONDANSETRON HCL INJ/PF 4 MG/2 ML SDV IV ONE (06:24)
--- NOTE | 2018-02-25 06:24 | RADIOLOGY REPORT (SQ) ---
EXAM DESCRIPTION: XR CHEST 1 VIEW COMPLETED DATE/TME: 02/25/2018 05:50 CLINICAL HISTORY: 32 years, Female, fever, cough Comparison: None FINDINGS: No focal lung consolidation. No pleural effusion. No pneumothorax. Cardiac and mediastinal silhouette is unremarkable. No acute osseous abnormality. Soft tissues are unremarkable. IMPRESSION: No acute findings. No focal lung consolidation.
[2018-02-25] MEDS ORDERED: PROMETHAZINE HCL INJ 25 MG/1 ML VIAL IV PRN (09:13)
[2018-02-25] MEDS ORDERED: NORMAL SALINE 1000 ML 1,000 ML IV PRN (09:13)
[2018-02-25] MEDS ORDERED: ONDANSETRON HCL INJ/PF 4 MG/2 ML SDV IV PRN (09:13)
[2018-02-25] MEDS ORDERED: DEXTROSE 50%-WATER 25 GM/50 ML DISP.SYRIN IV PRN ×2 (09:13)
[2018-02-25] MEDS ORDERED: ACETAMINOPHEN 325 MG TABLET PO PRN (09:13)
[2018-02-25] MEDS ORDERED: DEXTROSE 40% GEL 15 GM TUBE PO PRN ×2 (09:13)
[2018-02-25] MEDS ORDERED: IPRATROPIUM/ALBUTEROL 0.5-2.5 MG/3 ML AMPUL NEB PRN (09:13)
[2018-02-25] MEDS ORDERED: GLUCAGON,HUMAN RECOMB 1 MG INJ SUBCUT PRN (09:13)
[2018-02-25] MEDS ORDERED: NORMAL SALINE 100 ML with INSULIN REGULAR, HUMAN 100 UNIT IV PRN ×2 (09:17)
[2018-02-25] MEDS: FAMOTIDINE INJ/PF 20 MG/2 ML SDV IV SCH ×2 (10:12→21:02)
[2018-02-25 11:04] LABS: APPEARANCE,URINE CLEAR; BILIRUBIN,URINE NEGATIVE (NEGATIVE); COLOR,URINE STRAW; GLUCOSE, URINE >=500 mg/dL (NEGATIVE); KETONES,URINE 80 mg/dL (NEGATIVE); LEUKOCYTE ESTERASE,URINE NEGATIVE (NEGATIVE); NITRITE,URINE NEGATIVE (NEGATIVE); PROTEIN,URINE NEGATIVE (NEGATIVE); URINE SPECIFIC GRAVITY 1.026; UROBILINOGEN,URINE NEGATIVE mg/dL (<2.0)
[2018-02-25] MEDS: DEXTROSE 5%-NORMAL SALINE 1,000 ML IV PRN ×2 (13:00→23:51)
[2018-02-25 15:09] LABS: ANION GAP 7 (5-19); BLOOD UREA NITROGEN 10 mg/dL (7-20); CALCIUM 8.6 mg/dL (8.4-10.2); CARBON DIOXIDE 16 mmol/L (22-30); CHLORIDE 114 mmol/L (98-107); GLUCOSE 88 mg/dL (75-110); POTASSIUM 4.8 mmol/L (3.6-5.0); SODIUM 136.9 mmol/L (137-145)
[2018-02-25] MEDS: BENZOCAINE/MENTHOL SORE THROAT LOZENGE BUCCAL PRN ×2 (15:37→20:55)
[2018-02-25] MEDS: HEPARIN SOD (PORCINE) 5,000 UNIT/ML 1 ML SYRINGE SUBCUT SCH ×2 (15:40→21:03)
--- NOTE | 2018-02-25 17:26 | PDOC H&P ---
History of Present Illness Admission Date/PCP: 02/25/18 06:54 Patient complains of: nausea, vomiting History of Present Illness: ROSITA SCOTT is a 32 year old female with a past medical history significant for insulin-dependent diabetes mellitus and tobacco dependence with continuous use who presented to the emergency department today with a complaint of 3 days of a sore throat and intermittent nausea and vomiting that have worsened overnight. Evaluation in the emergency department revealed DKA with mild hyponatremia, hyperkalemia 5.3, anion gap 20, bicarb 15, glucose 551. Urinalysis and rapid strep were negative. Patient reports that she feels like she has had a viral upper respiratory cold this week with multiple family and friends sick contacts. She is referred to the hospitalist service for admission and management. Past Medical History Cardiac Medical History: Reports: Hyperlipidema Pulmonary Medical History: Reports: None EENT Medical History: Reports: None Neurological Medical History: Reports: None Endocrine Medical History: Reports: Diabetes Mellitus Type 1 Renal/ Medical History: Reports: None Malignancy Medical History: Reports: None GI Medical History: Reports: None Musculoskeltal Medical History: Reports: None Skin Medical History: Reports: None Psychiatric Medical History: Reports: Depression, Tobacco Dependency Traumatic Medical History: Reports: None Hematology: Reports: None Infectious Medical History: Reports: None Past Surgical History Past Surgical History: Reports: Tubal Ligation Social History Information Source: Patient Lives with: Spouse/Significant other Smoking Status: Current Every Day Smoker Cigarettes Packs Per Day: 1 Number of Years Smokin Frequency of Alcohol Use: None Hx Recreational Drug Use: No Drugs: Marijuana Hx Prescription Drug Abuse: No - Advance Directive Resuscitation Status: Full Code Surrogate healthcare decision maker:: The patient's mother, Cheli Vee, Family History Family History: Reviewed & Not Pertinent Parental Family History Reviewed: Yes Children Family History Reviewed: Yes Sibling(s) Family History Reviewed.: Yes Medication/Allergy Home Medications: Insulin Regular, Human [Novolin R (Reg) Insulin 100 unit/mL] 0 units SUBCUT MEALS PRN 02/25/18 NPH, Human Insulin Isophane [Novolin N (NPH) Insulin 100 unit/mL] 45 units SUBCUT BID 02/25/18 Allergies/Adverse Reactions: Penicillins Allergy (Verified 02/25/18 08:51) Review of Systems Constitutional: PRESENT: chills, fatigue, fever(s). ABSENT: headache(s), weight gain, weight loss Eyes: ABSENT: visual disturbances Ears: ABSENT: hearing changes Nose, Mouth, and Throat: PRESENT: sore throat Cardiovascular: ABSENT: chest pain, dyspnea on exertion, edema, orthropnea, palpitations Respiratory: ABSENT: cough, hemoptysis Gastrointestinal: PRESENT: nausea, vomiting. ABSENT: abdominal pain, constip ation, diarrhea, hematemesis, hematochezia Genitourinary: ABSENT: dysuria, hematuria Musculoskeletal: ABSENT: joint swelling Integumentary: ABSENT: rash, wounds Neurological: ABSENT: abnormal gait, abnormal speech, confusion, dizziness, focal weakness, syncope Psychiatric: ABSENT: anxiety, depression, homidical ideation, suicidal ideation Endocrine: ABSENT: cold intolerance, heat intolerance, polydipsia, polyuria Hematologic/Lymphatic: ABSENT: easy bleeding, easy bruising Physical Exam Vital Signs: Temp Pulse Resp BP Pulse Ox 98.6 F 96 16 120/60 98 02/25/18 15:52 02/25/18 15:52 02/25/18 15:52 02/25/18 15:52 02/25/18 15:52 Intake & Output 02/24/18 02/25/18 02/26/18 06:59 06:59 06:59 Intake Total 1000 2625 Balance 1000 2625 Weight 62.3 kg 61.5 kg General appearance: PRESENT: no acute distress, well-developed, well-nourished Head exam: PRESENT: atraumatic, normocephalic Eye exam: PRESENT: conjunctiva pink, EOMI, PERRLA. ABSENT: scleral icterus Ear exam: PRESENT: normal external ear exam Mouth exam: PRESENT: moist, tongue midline Neck exam: ABSENT: carotid bruit, JVD, lymphadenopathy, thyromegaly Respiratory exam: PRESENT: clear to auscultation roya, symmetrical, unlabored. ABSENT: rales, rhonchi, wheezes Cardiovascular exam: PRESENT: RRR, tachycardia. ABSENT: diastolic murmur, rubs, systolic murmur Pulses: PRESENT: normal dorsalis pedis pul Vascular exam: PRESENT: normal capillary refill GI/Abdominal exam: PRESENT: normal bowel sounds, soft. ABSENT: distended, guarding, mass, organolmegaly, rebound, tenderness Rectal exam: PRESENT: deferred Extremities exam: PRESENT: full ROM. ABSENT: calf tenderness, clubbing, pedal edema Neurological exam: PRESENT: alert, awake, oriented to person, oriented to place, oriented to time, oriented to situation, CN II-XII grossly intact. ABSENT: motor sensory deficit Psychiatric exam: PRESENT: appropriate affect, normal mood. ABSENT: homicidal ideation, suicidal ideation Skin exam: PRESENT: dry, intact, warm. ABSENT: cyanosis, rash Results Laboratory Results: 02/25/18 05:02 02/25/18 14:01 02/25/18 02/25/18 02/25/18 05:02 05:02 05:02 WBC 9.2 RBC 5.63 H Hgb 15.3 Hct 47.1 H MCV 84 MCH 27.3 MCHC 32.6 RDW 15.5 H Plt Count 371 Seg Neutrophils % 78.7 H Lymphocytes % 14.5 Monocytes % 5.5 Eosinophils % 0.6 Basophils % 0.7 Absolute Neutrophils 7.2 Absolute Lymphocytes 1.3 Absolute Monocytes 0.5 Absolute Eosinophils 0.1 Absolute Basophils 0.1 VBG pH 7.17 L* VBG pCO2 36.4 VBG HCO3 13.1 L VBG Base Excess -14.4 Sodium 135.7 L Potassium 5.3 H Chloride 101 Carbon Dioxide 15 L Anion Gap 20 H BUN 15 Creatinine 0.59 Est GFR ( Amer) > 60 Est GFR (Non-Af Amer) > 60 Glucose 551 H* Calcium 10.2 Total Bilirubin 0.9 AST 27 ALT 28 Alkaline Phosphatase 101 Total Protein 8.5 H Albumin 5.3 H Serum HCG, Qual Urine Color Urine Appearance Urine pH Ur Specific [place] Urine Protein Urine Glucose (UA) Urine Ketones Urine Blood Urine Nitrite Ur Leukocyte Esterase Urine WBC (Auto) Urine RBC (Auto) 02/25/18 02/25/18 02/25/18 05:02 06:00 14:01 WBC RBC Hgb Hct MCV MCH MCHC RDW Plt Count Seg Neutrophils % Lymphocytes % Monocytes % Eosinophils % Basophils % Absolute Neutrophils Absolute Lymphocytes Absolute Monocytes Absolute Eosinophils Absolute Basophils VBG pH VBG pCO2 VBG HCO3 VBG Base Excess Sodium 136.9 L Potassium 4.8 Chloride 114 H Carbon Dioxide 16 L Anion Gap 7 BUN 10 Creatinine 0.37 L Est GFR ( Amer) > 60 Est GFR (Non-Af Amer) > 60 Glucose 88 Calcium 8.6 Total Bilirubin AST ALT Alkaline Phosphatase Total Protein Albumin Serum HCG, Qual NEGATIVE Urine Color STRAW Urine Appearance CLEAR Urine pH 5.0 Ur Specific [place] 1.026 Urine Protein NEGATIVE Urine Glucose (UA) >=500 H Urine Ketones 80 H Urine Blood NEGATIVE Urine Nitrite NEGATIVE Ur Leukocyte Esterase NEGATIVE Urine WBC (Auto) 1 Urine RBC (Auto) 0 Impressions: Chest X-Ray 02/25/18 05:50 IMPRESSION: No acute findings. No focal lung consolidation. Assessment & Plan - Diagnosis (1) DKA, type 1 Qualifiers: Diabetes mellitus complication detail: without coma Qualified Code(s): E10.10 - Type 1 diabetes mellitus with ketoacidosis without coma Is this a current diagnosis for this admission?: Yes Plan: Follow-up chemistry shows sodium 136.9, potassium is corrected to 4.8, bicarbonate 16, anion gap has closed at 7, and glucose of 88. The patient was admitted to [facility] on continuous cardiac telemetry. She is provided aggressive IV fluid resuscitation. She was placed on an insulin drip; her anion gap is now closed and her bicarb is 16. Nursing reports the patient has lost multiple IVs and is refusing to allow them to place more. Nursing is asked to encourage patient to allow IV attempts as she continues to need IV fluids. May require central line placement. Have ordered Lantus 10 units to be administered now with Accu-Cheks every 6 hours. Humalog for sliding scale coverage. May discontinue Insulin drip 1 hour after administering Lantus. She was initially placed in n.p.o. status with the exception of ice chips. Will allow water and sugar free clears as tolerated. Continue to monitor serial chemistries. (2) Nausea & vomiting Is this a current diagnosis for this admission?: Yes Plan: Secondary to #1; management as above. Antiemetics as needed. (3) Type 1 diabetes mellitus Qualifiers: Diabetes mellitus complication status: with hyperglycemia Qualified Code(s): E10.65 - Type 1 diabetes mellitus with hyperglycemia Is this a current diagnosis for this admission?: Yes Plan: A1C is pending. Management as above. logistics operations director and patient educator are consulted. (4) Tobacco dependence Is this a current diagnosis for this admission?: Yes Plan: Smoking cessation is encouraged; nicotine replacement therapies are provided. - Time Time Spent: 30 to 50 Minutes Smoking Cessation Education: 3 to 10 minutes Medications reviewed and adjusted accordingly: Yes Anticipated discharge: Home Within: within 24 hours
[2018-02-25] MEDS ORDERED: INSULIN GLARGINE,HUM.REC.ANLOG 1,000 UNIT/10 ML UNIT SUBCUT ONE (17:30)
[2018-02-25 22:29] LABS: ANION GAP 8 (5-19); BLOOD UREA NITROGEN 9 mg/dL (7-20); CALCIUM 8.3 mg/dL (8.4-10.2); CARBON DIOXIDE 17 mmol/L (22-30); CHLORIDE 110 mmol/L (98-107); GLUCOSE 222 mg/dL (75-110); SODIUM 134.6 mmol/L (137-145)
[2018-02-25 22:31] LABS: POTASSIUM 3.6 mmol/L (3.6-5.0)
[2018-02-25] MEDS: INSULIN LISPRO 100 UNIT/ML 3 ML VIAL SUBCUT PRN (23:46)
[2018-02-26 05:29] LABS: ANION GAP 6 (5-19); BLOOD UREA NITROGEN 8 mg/dL (7-20); CALCIUM 8.3 mg/dL (8.4-10.2); CARBON DIOXIDE 19 mmol/L (22-30); CHLORIDE 113 mmol/L (98-107); GLUCOSE 163 mg/dL (75-110); POTASSIUM 3.8 mmol/L (3.6-5.0); SODIUM 138.4 mmol/L (137-145)
[2018-02-26] MEDS: HEPARIN SOD (PORCINE) 5,000 UNIT/ML 1 ML SYRINGE SUBCUT SCH (05:41)
[2018-02-26] MEDS: DEXTROSE 5%-NORMAL SALINE 1,000 ML IV PRN (06:05)
[2018-02-26] MEDS: INSULIN LISPRO 100 UNIT/ML 3 ML VIAL SUBCUT PRN (06:32)
[2018-02-26] MEDS: BENZOCAINE/MENTHOL SORE THROAT LOZENGE BUCCAL PRN (06:34)
[2018-02-26 06:48] LABS: HEMATOCRIT 33.9 % (36.0-47.0); MEAN CORPUSCULAR HEMOGLOBIN 27.2 pg (27.0-33.4); PLATELET COUNT 297 10^3/uL (150-450); RED BLOOD COUNT 4.24 10^6/uL (3.72-5.28); WHITE BLOOD COUNT 8.3 10^3/uL (4.0-10.5)
[2018-02-26 06:57] LABS: HEMOGLOBIN 11.5 g/dL (12.0-15.5); MEAN CORPUSCULAR VOLUME 80 fl (80-97)
[2018-02-26 08:24] VITALS: BP 119/67
[2018-02-26] MEDS ORDERED: INSULIN NPH (ISOPHANE), HUMAN 100 UNIT/ML 3 ML SUBCUT SCH (10:00)
--- NOTE | 2018-02-26 16:27 | PDOC DISCHARGE SUMMARY ---
General - Admit/Disc Date/PCP Admission Date/Primary Care Provider: 02/25/18 06:54 Discharge Date: 02/26/18 - Discharge Diagnosis (1) DKA, type 1 Is this a current diagnosis for this admission?: Yes Summary: Patient was admitted to [facility] on continuous cardiac telemetry. She was placed in n.p.o. status and provided aggressive IV fluid rehydration and insulin drip. Serial chemistries were monitored and her iron gap quickly closed. She was provided subcutaneous insulin and advanced to a clear liquid diet. She tolerated this well and so was further advanced to a consistent carb diet. Her blood sugars remained well controlled on the following morning the patient was requesting to be discharged home so that she could take care of her young children. Discussed with the patient that she still remains slightly dehydrated and so it would be important for her to continue drinking water today. We had a long discussion about how to manage her long-acting insulin through careful monitoring of her fasting blood glucose and making evening dose adjustments. The patient understood and was able to teach this back to me. Written instructions were provided. She was advised on the importance of following up with primary care provider. She met with discharge planning and has been provided resources for the Medicaid office and [facility]. Patient was discharged home in stable condition. She reported that she had plenty of insulin at home and did not require prescription refills. (2) Nausea & vomiting Is this a current diagnosis for this admission?: Yes Summary: Secondary to #1; resolved. (3) Type 1 diabetes mellitus Is this a current diagnosis for this admission?: Yes Summary: A1c 11%. Patient met with the registered dietitian. Have provided information on how to make adjustments to her long acting insulin. Encouraged increase focus on dietary compliance. She is advised of the importance of establishing with a primary care provider. She is further advised to return to the emergency department for any concerning symptoms. (4) Tobacco dependence Is this a current diagnosis for this admission?: Yes Summary: Smoking cessation was encouraged; patient declined need for nicotine replacement therapies. - Additional Information Resuscitation Status: Full Code Discharge Diet: Diabetic, Other (Comments) Discharge Activity: Activity As Tolerated, Balance Activity w/Rest Prescriptions: Benzocaine/Menthol [Chloraseptic Sore Throat Lozenge] 2 each BUCCAL Q4HP PRN #20 lozenge PRN Reason: Home Medications: Insulin Regular, Human [Novolin R (Reg) Insulin 100 unit/mL] 0 units SUBCUT MEALS PRN 02/25/18 NPH, Human Insulin Isophane [Novolin N (NPH) Insulin 100 unit/mL] 45 units SUBCUT BID 02/25/18 Acetaminophen [Tylenol 325 mg Tablet] 650 mg PO Q4HP PRN tablet 02/26/18 Benzocaine/Menthol [Chloraseptic Sore Throat Lozenge] 2 each BUCCAL Q4HP PRN #20 lozenge 02/26/18 History of Present Illness History of Present Illness: ROSITA SCOTT is a 32 year old female with a past medical history significant for insulin-dependent diabetes mellitus and tobacco dependence with continuous use who presented to the emergency department today with a complaint of 3 days of a sore throat and intermittent nausea and vomiting that have worsened overnight. Evaluation in the emergency department revealed DKA with mild hyponatremia, hyperkalemia 5.3, anion gap 20, bicarb 15, glucose 551. Urinalysis and rapid strep were negative. Patient reports that she feels like she has had a viral upper respiratory cold this week with multiple family and friends sick contacts. She is referred to the hospitalist service for admission and management. Physical Exam Vital Signs: Temp Pulse Resp BP Pulse Ox 97.4 F 85 16 119/67 99 02/26/18 09:33 02/26/18 09:33 02/26/18 09:33 02/26/18 09:33 02/26/18 09:33 Intake & Output 02/25/18 02/26/18 02/27/18 06:59 06:59 06:59 Intake Total 1000 5117 Balance 1000 5117 Weight 62.3 kg 61.5 kg General appearance: PRESENT: no acute distress, well-developed, well-nourished Head exam: PRESENT: atraumatic, normocephalic Eye exam: PRESENT: conjunctiva pink, EOMI, PERRLA. ABSENT: scleral icterus Ear exam: PRESENT: normal external ear exam Mouth exam: PRESENT: moist, tongue midline Neck exam: ABSENT: carotid bruit, JVD, lymphadenopathy, thyromegaly Respiratory exam: PRESENT: clear to auscultation roya. ABSENT: rales, rhonchi, wheezes Cardiovascular exam: PRESENT: RRR. ABSENT: diastolic murmur, rubs, systolic murmur Pulses: PRESENT: normal dorsalis pedis pul Vascular exam: PRESENT: normal capillary refill GI/Abdominal exam: PRESENT: normal bowel sounds, soft. ABSENT: distended, guarding, mass, organolmegaly, rebound, tenderness Rectal exam: PRESENT: deferred Extremities exam: PRESENT: full ROM. ABSENT: calf tenderness, clubbing, pedal edema Neurological exam: PRESENT: alert, awake, oriented to person, oriented to place, oriented to time, oriented to situation, CN II-XII grossly intact. ABSENT: motor sensory deficit Psychiatric exam: PRESENT: appropriate affect, normal mood. ABSENT: homicidal ideation, suicidal ideation Skin exam: PRESENT: dry, intact, warm. ABSENT: cyanosis, rash Results Laboratory Results: 02/26/18 06:07 02/26/18 04:06 02/25/18 02/26/18 02/26/18 22:00 04:06 04:06 WBC Cancelled RBC Cancelled Hgb Cancelled Hct Cancelled MCV Cancelled MCH Cancelled MCHC Cancelled RDW Cancelled Plt Count Cancelled Sodium 134.6 L 138.4 Potassium 3.6 D 3.8 Chloride 110 H 113 H Carbon Dioxide 17 L 19 L Anion Gap 8 6 BUN 9 8 Creatinine 0.37 L 0.35 L Est GFR ( Amer) > 60 > 60 Est GFR (Non-Af Amer) > 60 > 60 Glucose 222 H 163 H Calcium 8.3 L 8.3 L TSH 02/26/18 02/26/18 04:06 06:07 WBC 8.3 RBC 4.24 Hgb 11.5 L D Hct 33.9 L MCV 80 D MCH 27.2 MCHC 34.0 RDW 15.0 H Plt Count 297 Sodium Potassium Chloride Carbon Dioxide Anion Gap BUN Creatinine Est GFR ( Amer) Est GFR (Non-Af Amer) Glucose Calcium TSH 1.18 Impressions: Chest X-Ray 02/25/18 05:50 IMPRESSION: No acute findings. No focal lung consolidation. Qualifiers - * PATIENT BEING DISCHARGED WITH ANY OF THE FOLLOWING DIAGNOSIS: No Plan Discharge Plan: Discharge to home with self-care. Discussed with patient monitoring of fasting blood glucose and how to adjust her long-acting insulin. Written instructions were provided. Follow-up with primary care provider within 1 week. Return to the emergency department as needed. Time Spent: Less than 30 Minutes
[2018-02-26] MEDS ORDERED: INSULIN GLARGINE,HUM.REC.ANLOG 300 UNIT/3 ML INSULN.PEN SUBCUT ONE (17:09)
== END 2018-02-26 10:11 | disposition home or self-care (01) | DRG 638 ==
LOC: ER 04:31 → EH 06:54 → 3N 12:28
PROVIDERS: ADMIT Internal Medicine; ATTEND Internal Medicine
DX: E10.10 Type 1 diabetes mellitus with ketoacidosis without coma (principal); E87.1 Hypo-osmolality and hyponatremia; Z79.4 Long term (current) use of insulin; F17.210 Nicotine dependence, cigarettes, uncomplicated; F32.9 Major depressive disorder, single episode, unspecified; E78.00 Pure hypercholesterolemia, unspecified; E87.5 Hyperkalemia; E78.5 Hyperlipidemia, unspecified; Z88.0 Allergy status to penicillin; Z98.51 Tubal ligation status
CPT/HCPCS: 36415; 71045; 80048; 80053; 81001; 82803; 82962; 83036; 84443; 84703; 85025; 85027; 87070; 87077; 87880; 96361; 96374; 99291; J1815; J2405; J7030; S0028